=== PATIENT | female | born 1955 | race Caucasian/White ===

== ENCOUNTER 2018-07-15 15:38 | Inpatient (IN) | payer MEDICARE ==
[~2018-07-15] VITALS: Ht 157.5 cm; Wt 86.6 kg
[~2018-07-15 15:38] MED LIST: DIOVAN PO; GLIMEPIRIDE2 MG; HYDROCODON-ACE1 EA12; METFORMIN HCL500 MG; METOPROLOL SUCC50 MG
--- OUTSIDE RECORDS SUMMARY | 2018-07-15 15:42 | XMS REPORT | Clinical Summary ---
Author Author [facility] Address Unknown Phone Unavailable Care Team Providers Care Well Flow Operator Name Role Phone Mike Amezcua MD PCP Allergies Not on File Medications Not on file Active Problems Not on file Social History Date Tobacco Use Types Packs/Day Years Used Never Assessed Sex Assigned at Date Recorded Not on file Industry Job Start Date Occupation Not on file Not on file Not on file Travel End Travel History Travel Start No recent travel history available. Last Filed Vital Signs Not on file Plan of Treatment Health Maintenance Due Date Last Done Comments CERVICAL CANCER SCREENING 1975 COLON CANCER SCREENING 2004 SHINGRIX VACCINE (#1) 2004 ZOSTER VACCINE 2014 INFLUENZA VACCINE 04/04/2018 BREAST CANCER SCREENING 02/20/2019 02/20/2017 Results Not on fileafter 07/14/2017 Insurance Payer Benefit Subscriber ID Type Phone Address Plan / Group [facility] MEDICARE AARP xxxxxxxxx O MEDICARE COMPLETE MCR Advance Directives Patient has advance care planning documents on file. For more information, randell e contact: Nilay Neumann [address] [place], [place] [address] [place] [address]
--- OUTSIDE RECORDS SUMMARY | 2018-07-15 15:47 | XMS REPORT | Clinical Summary ---
Author Author [employer] [employer] [facility] [employer] [employer] Address Unknown Phone Unavailable Care Team Providers Care Supervisor [place] Name Role Phone Mike Amezcua MD PCP [...] ID Type Phone Address Plan / Group [facility] MEDICARE AARP xxxxxxxxx O MEDICARE COMPLETE MCR Advance Directives Patient has advance care planning documents on file. For more information, randell e contact: Nilay Neumann [address] [place], [place] [address] [place] [address]
[2018-07-15] MEDS ORDERED: SODIUM CHLORIDE 0.9% 1000ML 1,000 ML IV STA ×3 (15:59→17:12)
[2018-07-15] MEDS ORDERED: HYDRALAZINE HCL 20 MG/ML VIAL IV ONE (16:30)
[2018-07-15 16:46] LABS: BASOPHILS # (AUTO) 0.1 (0.0-0.1); BASOPHILS % 0.7 % (0.0-1.0); EOSINOPHILS # (AUTO) 0.1 (0.0-0.4); EOSINOPHILS % 0.8 % (0.0-6.0); HEMATOCRIT 35.2 % (34.2-44.1); HEMOGLOBIN 12.1 g/dL (12.0-16.0); LYMPHOCYTES # (AUTO) 1.8 (1.0-3.2); LYMPHOCYTES % 23.1 % (18.0-39.1); MEAN CORPUSCULAR HEMOGLOBIN 33.2 pg (28-32); MEAN CORPUSCULAR HGB CONC 34.4 g/dL (31-35); MEAN CORPUSCULAR VOLUME 96.7 fL (81-99); MONOCYTES # (AUTO) 0.6 (0.2-0.8); MONOCYTES % 8.2 % (4.4-11.3); NEUTROPHILS # (AUTO) 5.1 (2.1-6.9); NEUTROPHILS % 65.9 % (38.7-80.0); PLATELET COUNT 217 x10e3/uL (140-360); RED BLOOD COUNT 3.64 x10e6/uL (3.6-5.1); RED CELL DISTRIBUTION WIDTH 11.9 % (11.7-14.4)
[2018-07-15 16:52] LABS: INR 0.92; PARTIAL THROMBOPLASTIN TIME 29.7 seconds (23.8-35.5); PROTHROMBIN TIME 13.2 seconds (11.9-14.5)
[2018-07-15 17:00] LABS: ALBUMIN 3.1 g/dL (3.5-5.0); ALBUMIN/GLOBULIN RATIO 0.6 (0.8-2.0); ANION GAP 20.1 mmol/L (8-16); CALCIUM 10.8 mg/dL (8.4-10.2); CREATININE, SERUM 1.55 mg/dL (0.57-1.11); POTASSIUM 4.1 mmol/L (3.5-5.1)
[2018-07-15 17:06] LABS: CREATINE KINASE MB 0.6 ng/mL (0-5.0)
--- NOTE | 2018-07-15 17:22 | Diagnostic Imaging Report ---
FOOT RIGHT COMPLETE - 3 views HISTORY: Prednisone swelling COMPARISON: None available. FINDINGS: Status post right second toe amputation at the level of the proximal interphalangeal joint. No evidence of acute fracture or dislocation. No definite periosteal reaction or evidence of erosion. Partially imaged plate and screw fixation of tibia. Mild soft tissue swelling of the forefoot. IMPRESSION: No definite evidence of osteomyelitis. Consider obtaining MRI if there is high clinical concern for osteomyelitis. Signed by: Dr. Solis Wagner MD on 07/15/2018 5:19 PM
[2018-07-15] MEDS ORDERED: DIOVAN160 MG PO (17:34)
[2018-07-15] MEDS ORDERED: HYDROCHLOROTHIA25 MG PO (17:34)
[2018-07-15] MEDS ORDERED: AMLODIPINE BESY10 MG PO (17:34)
[2018-07-15] MEDS: PIPER-TAZ 3.375 GM 50 ML IV SCH (17:39)
[2018-07-15] MEDS ORDERED: INSULIN REGULAR, HUMAN 100 UNIT/1 ML 3ML VIAL SQ ONE (18:00)
[2018-07-15 18:02] LABS: CLARITY,URINE HAZY (CLEAR); COLOR,URINE YELLOW (YELLOW); KETONES,URINE NEGATIVE (NEGATIVE); LEUKOCYTE ESTERASE ,URINE TRACE (NEGATIVE); NITRITE,URINE POSITIVE (NEGATIVE); PROTEIN,URINE DIPSTICK 1+ (NEGATIVE); URINE UROBILINOGEN 0.2 mg/dL (0.2 - 1)
[2018-07-15 18:03] LABS: BILIRUBIN,URINE NEGATIVE (NEGATIVE)
[2018-07-15 18:10] LABS: BACTERIA,URINE MANY /HPF; EPITHELIAL CELLS,URINE RARE /LPF; RBC,URINE 0-5 /HPF (0-5)
[2018-07-15] MEDS ORDERED: ONDANSETRON HCL INJ 2 MG/ML VIAL IV PRN (19:00)
[2018-07-15] MEDS ORDERED: MORPHINE SULFATE INJ 4 MG/ML INJ IV PRN (19:00)
[2018-07-15] MEDS ORDERED: DEXTROSE 50% SYRINGE 50 ML IV PRN (19:00)
[2018-07-15] MEDS ORDERED: INSULIN LISPRO 100 UNIT/1 ML 3ML VIAL SQ ONE (19:15)
--- OUTSIDE RECORDS SUMMARY | 2018-07-15 19:17 | XMS REPORT ---
Author Author [facility] Address Unknown Phone Unavailable Care Team Providers Care Gut Snatcher Name Role Phone Luna JACKSON Unavailable Unavailable Problems This patient has no known problems. Allergies, Adverse Reactions, Alerts This patient has no known allergies or adverse reactions. Medications This patient has no known medications. Results Test Description Test Time Test Comments Text Results Atomic Results Result Comments FOOT RIGHT COMPLETE 2018-07-15 17:16:00 [place] [address] Patient Name: AURY RENTERIA MR #: [id number] : 1955 Age/Sex: 62/F Req #: [id number] Adm Physician: Ordered by: DERREK BOND AGRICULTURAL SALES REPRESENTATIVE Report #: [id number] Location: ER Room/Bed: Procedure: [id number] DX/FOOT RIGHT COMPLETE Exam Date: 07/15/18 Exam Time: 1625 REPORT STATUS: Signed FOOT RIGHT COMPLETE - 3 views HISTORY: Prednisone swelling COMPARISON: None available. FINDINGS: Status post right second toe amputation at the level of the proximal interphalangeal joint. No evidence of acute fracture or dislocation. No definite periosteal reaction or evidence of erosion. Partially imaged plate and screw fixation of tibia. Mild soft tissue swelling of the forefoot. IMPRESSION: No definite evidence of osteomyelitis. Consider obtaining MRI if there is high clinical concern for osteomyelitis. Signed by: Dr. Solis Conner MD on 07/15/2018 5:19 PM Dictated By: SOLIS CONNER MD 18 Transcribed By: SHERRIE on 07/15/181718 COPY TO: DERREK BOND NP
--- OUTSIDE RECORDS SUMMARY | 2018-07-15 19:17 | XMS REPORT | Clinical Summary ---
Author Author [facility] Address Unknown Phone Unavailable Care Team Providers Care Railway Engineer Name Role Phone Mike Amezcua MD PCP [...] ID Type Phone Address Plan / Group [facility] MEDICARE AARP xxxxxxxxx O MEDICARE COMPLETE MCR Advance Directives Patient has advance care planning documents on file. For more information, randell e contact: Nilay Neumann [address] [place], [place] [address] [place] [address]
[2018-07-15] MEDS ORDERED: CEFEPIME HCL 1 GM VIAL ONE (19:45)
[2018-07-15] MEDS ORDERED: SODIUM CHLORIDE 0.9% 1000ML 1,000 ML ONE (19:46)
[2018-07-15] MEDS ORDERED: SODIUM CHLORIDE 0.9% 100 ML ONE (19:46)
[2018-07-15] MEDS: SODIUM CHLORIDE 0.9% 1000ML 1,000 ML IV SCH (20:18)
[2018-07-15] MEDS: VANCOMYCIN 1GM/NS 250 ML 250 ML IV SCH (21:54)
[2018-07-15] MEDS: CEFEPIME HCL 1 GM VIAL IV SCH (21:55)
[2018-07-15] MEDS: INSULIN LISPRO 100 UNIT/1 ML 3ML VIAL SQ SCH (22:00)
--- NOTE | 2018-07-15 23:12 | Diagnostic Imaging Report ---
EXAMINATION: CHEST 2 VIEWS INDICATION: Diabetes and hypertension. COMPARISON: None FINDINGS: PA and lateral views TUBES and LINES: None. LUNGS: Lungs are well inflated. Calcified granuloma or bone island projecting over the right lateral lung base. There is no evidence of pneumonia or pulmonary edema. PLEURA: No pleural effusion or pneumothorax. HEART AND MEDIASTINUM: The cardiomediastinal silhouette is unremarkable. BONES AND SOFT TISSUES: No acute osseous lesion. Soft tissues are unremarkable. UPPER ABDOMEN: No free air under the diaphragm. IMPRESSION: No acute thoracic abnormality. Signed by: DR. Juwan Puga MD on 07/15/2018 11:08 PM
[2018-07-16] MEDS: PIPER-TAZ 3.375 GM 50 ML IV SCH ×4 (02:15→17:35)
[2018-07-16] MEDS ORDERED: SODIUM CHLORIDE 0.9% 50ML 50 ML ONE (03:14)
[2018-07-16] MEDS: CEFEPIME HCL 1 GM VIAL IV SCH ×3 (03:15→22:28)
[2018-07-16] MEDS: SODIUM CHLORIDE 0.9% 1000ML 1,000 ML IV SCH ×3 (03:31→17:51)
[2018-07-16 05:16] LABS: BASOPHILS % 0.6 % (0.0-1.0); EOSINOPHILS # (AUTO) 0.1 (0.0-0.4); EOSINOPHILS % 2.2 % (0.0-6.0); HEMATOCRIT 27.2 % (34.2-44.1); HEMOGLOBIN 9.3 g/dL (12.0-16.0); LYMPHOCYTES # (AUTO) 1.8 (1.0-3.2); MEAN CORPUSCULAR HEMOGLOBIN 33.7 pg (28-32); MEAN CORPUSCULAR HGB CONC 34.2 g/dL (31-35); MEAN CORPUSCULAR VOLUME 98.6 fL (81-99); MONOCYTES # (AUTO) 0.7 (0.2-0.8); MONOCYTES % 10.8 % (4.4-11.3); NEUTROPHILS # (AUTO) 3.5 (2.1-6.9); NEUTROPHILS % 55.8 % (38.7-80.0); PLATELET COUNT 183 x10e3/uL (140-360); RED BLOOD COUNT 2.76 x10e6/uL (3.6-5.1); RED CELL DISTRIBUTION WIDTH 12.2 % (11.7-14.4)
[2018-07-16 05:44] LABS: ANION GAP 13.9 mmol/L (8-16); CALCIUM 8.9 mg/dL (8.4-10.2); CREATININE, SERUM 1.15 mg/dL (0.57-1.11); POTASSIUM 3.9 mmol/L (3.5-5.1)
[2018-07-16] MEDS ORDERED: CEFEPIME HCL 1 GM VIAL IV SCH (06:00)
--- NOTE | 2018-07-16 08:38 | Consultation ---
DATE OF CONSULTATION: July 16, 2018 REASON FOR CONSULTATION: Right foot infection. HISTORY OF PRESENT ILLNESS: This is a 62-year-old female with a past medical history of type 2 diabetes, peripheral neuropathy, hypertension, heart disease, obesity, anemia of chronic disease, history of osteomyelitis, who presented to the emergency room yesterday for a worsening infection to her right foot. Per the patient, she relates over the weekend approximately 3 days ago she relates to having nausea, vomiting, fever, and chills, and noticed her right foot was getting red and swollen. She denies any acute history of trauma. She relates that she checks her blood glucose once a week, and relates that they are typically well controlled. She has a history of a partial 2nd digit amputation to the right foot. Currently, denies nausea, vomiting, fever, chills, chest pain, or shortness of breath. PAST MEDICAL HISTORY: Type 2 diabetes, peripheral neuropathy, hypertension, anemia of chronic disease, stage 1 chronic kidney disease, obesity. MEDICATIONS: Per the chart. ALLERGIES: ASPIRIN AND LISINOPRIL. REVIEW OF SYSTEMS: The patient currently denies nausea, vomiting, fever, chills, chest pain, or shortness of breath. SURGICAL HISTORY: Right 2nd digit amputation, I and D of hip with history of osteomyelitis, hysterectomy. SOCIAL HISTORY: The patient lives by herself. Denies smoking. Denies any illicit drug usage. PHYSICAL EXAMINATION GENERAL: Alert and oriented times 3 in no apparent distress. VITAL SIGNS: Today, temperature is 98.8, heart rate 89, respiratory rate 18, blood pressure 140/70, pulse ox 96% on room air. LOWER EXTREMITY PHYSICAL EXAMINATION VASCULAR: Dorsalis pedis pulse is palpable, and 2/4 posterior tibial pulses faintly palpable at 1/4. Capillary refill time is approximately 3-4 seconds to the right foot. Bright erythema is noted to the patient's right foot extending from the right 3rd digit to the level of the mid-forefoot. Edema and warmth is noted as well. NEUROLOGICAL: Sensation is absent to light touch bilateral. MUSCULOSKELETAL: Large bony prominence of the 1st metatarsophalangeal joint with the hallux deviated laterally. Partially amputated right 2nd digit. DERMATOLOGICAL: A deep ulceration is noted to the distal tip of the patient's right 3rd digit, as well as the entire dorsum of the right 3rd digit with 100% fibrotic tissue present. Greater than 2 cm of periwound erythema, edema and warmth are present. The digit is approximately 1.5 times the adjacent digit. LABS: White blood cell count is 6.3, hemoglobin 9.3, hematocrit 27.2, and platelet count 183,000. Sed rate is 125. Sodium 139, potassium 3.9, chloride 106, CO2 23, BUN 20, creatinine 1.15, glucose 213. Glucose upon admission was 362. Hemoglobin A1c is pending. IMAGING: Two views were taken of the patient's right foot, which reveals no definite evidence of acute osteomyelitis. However, MRI is recommended. ASSESSMENT 1. Right diabetic foot infection with periwound cellulitis greater than 2 cm with concern for osteomyelitis. 2. Uncontrolled type 2 diabetes with peripheral neuropathy. 3. Previous history of amputation of the right 2nd digit. PLAN: The patient was seen and evaluated. Discussed condition, x-rays and treatment options with the patient in detail. The dressing was changed, and the wound was examined today. Will recommend MRI to determine presence and extent of osteomyelitis. Discussed with the patient if osteomyelitis is present, will recommend at least a right 3rd digit amputation versus a transmetatarsal amputation depending on the results of the MRI. Will also order arterial Dopplers to evaluate circulation to determine if intervention will be needed to optimize the healing process. Will order daily dressing changes with Betadine wet-to-dry. The podiatry service will continue to monitor as an inpatient. Job#: [id number] [place]
[2018-07-16] MEDS: INSULIN LISPRO 100 UNIT/1 ML 3ML VIAL SQ SCH ×6 (08:50→21:10)
[2018-07-16] MEDS ORDERED: VANCOMYCIN 1GM/NS 250 ML 250 ML IV SCH (09:00)
[2018-07-16] MEDS: VANCOMYCIN 1GM/NS 250 ML 250 ML IV SCH ×2 (09:52→17:35)
--- NOTE | 2018-07-16 11:26 | History and Physical ---
CHIEF COMPLAINT: "I have a right foot infection." HISTORY OF PRESENT ILLNESS: This is a 62-year-old female white woman who presents to [facility] emergency room with complaints of right 3rd toe redness for 2 days. Patient states for approximately 1 week prior to admission she had been experiencing subjective fever and chills, denied any nausea or vomiting. Patient states that 3 days prior to admission she noticed that her 3rd right toe became very red and swollen. She states on the day of admission her right foot became very red and swollen. Patient has minimal pain since she has severe diabetic peripheral neuropathy. In the emergency room patient was found to have a white blood cell count of 7600 with 65% segmented neutrophils. Patient's sedimentation rate was elevated at 125. Patient's BUN and creatinine in the emergency room were 21 and 1.55 respectively. Also in the emergency room patient's serum glucose level was 673 mg/dl. Patient's anion gap was 20, but the serum bicarbonate was 25. Today's labs reveal a BUN and creatinine of 20 and 1.15 respectively with serum bicarbonate of 23 and an anion gap of 13.9. Patient underwent an x-ray of the right foot in the emergency room that revealed no clear evidence of osteomyelitis, but it did reveal mild soft-tissue swelling of the right forefoot. The patient underwent chest x-ray in the emergency room which was unremarkable. In the emergency room patient was found to have hazy yellow urine with 1+ protein, 3+ glucose, positive nitrites, trace blood, trace leukocyte esterase, and 11-20 white blood cells per high-power field with many bacteria. Patient was admitted for further evaluation and treatment. REVIEW OF SYSTEMS GENERAL: Patient thinks that she may have gained 20 pounds over the last year and a half, but she is unable to quantify exactly. The patient states that she has been experiencing subjective fever and chills for 1 week prior to admission as previously stated. HEENT: Patient states her vision has worsened secondary to diabetic retinopathy. Denies any headaches. CARDIOVASCULAR/RESPIRATORY: No chest pain, no shortness of breath, no cough. GI: No nausea, vomiting. : Urinary frequency but denies any urinary tract infection-type symptoms but was found to have a urinary tract infection in the emergency room. NEUROMUSCULAR: Complains of the right 3rd toe redness and swelling over the past few days prior to admission. Patient states she has numbness in the plantar aspect of both feet. ALLERGIES: ASPIRIN. PAST MEDICAL HISTORY 1. Type 2 diabetes mellitus with severe diabetic peripheral neuropathy. 2. Stage 3 chronic renal disease. 3. Hypertensive heart disease. 4. Hypertriglyceridemia. 5. Hyperlipidemia. 6. Severe statin intolerance. 7. Anemia secondary to chronic disease. 8. Diabetic retinopathy. SURGICAL HISTORY 1. Second right toe amputation in 2014. 2. Right proximal tibia intramedullary nail placement. 3. Partial hysterectomy. 4. Right wrist surgery to repair a traumatic fracture. 5. Lower abdominal incision and drainage of Methicillin-resistant Staphylococcus aureus infection in September of 2009. SOCIAL HISTORY: This woman is single and lives alone in an apartment. She is currently unemployed but receiving disability benefits. The patient denies any tobacco or alcohol use. FAMILY HISTORY: Father with hypertension and diabetes mellitus. HOME MEDICATIONS 1. Metformin 500 mg b.i.d. 2. [place]-3 fish oil 2000 mg b.i.d. 3. Glimepiride 4 mg b.i.d. 4. Hydrochlorothiazide 25 mg b.i.d. 5. Valsartan 160 mg b.i.d. 6. Amlodipine 10 mg daily. 7. Vitamin D3, 1000 units daily. PHYSICAL EXAMINATION GENERAL: She is awake, alert and fully oriented. She is pleasant and cooperative with exam. VITAL SIGNS: Blood pressure is 148/90, pulse 106, respiratory rate is 18, oxygen saturation 98% right atrial. temperature is 99.0. Height is 5 feet 2 inches. Weight is 165 pounds. Calculated body mass index is 30. INTEGUMENT: Skin is warm and dry. No pallor, jaundice, diaphoresis. HEENT: Anicteric sclerae with dry mucous membranes. NECK: Supple. CARDIOVASCULAR: Distant heart sounds. Tachycardic rate with regular rhythm. Patient has an S3 and S4 gallop. LUNGS: No rales, no rhonchi, no wheezes. ABDOMEN: Obese yet benign. EXTREMITIES: The right 3rd toe is swollen and erythematous with purulent drainage. The right forefoot is very swollen, red, tender and warm to touch. There is erythema extending superiorly into the distal aspect of the right lower leg. NEUROLOGIC: No gross deficits, but she has no pinprick sensation in the plantar aspect of both feet. DIAGNOSES 1. Right diabetic foot ulcer (3rd toe) with surrounding cellulitis. 2. Right foot osteomyelitis, likely. 3. Uncontrolled type 2 diabetes mellitus with severe diabetic peripheral neuropathy. 4. Diabetic retinopathy. 5. Hypertensive heart disease. 6. Kzmws-jc-zibpcuz renal failure. 7. Urinary tract infection. PLAN 1. Start intravenous antibiotics. 2. Consult Podiatry. 3. Agree with MRI of the right foot as recommended by Podiatry. 4. Agree with arterial Dopplers of the right lower leg. 5. Inform the patient that she likely would benefit from a transmetatarsal amputation but could likely undergo a right below-knee amputation in the near future. 6. Aggressive glucose control. 7. Will check lipid profile. 8. Will hold metformin and diuretics, namely hydrochlorothiazide, because of the patient's [id number] renal failure. 9. Will initiate scheduled insulin therapy. 10. Blood pressure control. 11. Follow urine cultures. I spent 1 hour 10 minutes in the care of this patient. Job#: [id number] EV [email or web address]
[2018-07-16 11:39] LABS: CHOL/HDL RATIO 8.1 (3.0-3.6)
[2018-07-16 11:49] LABS: THYROID STIMULATING HORMONE 2.669 uIU/mL (0.350-4.940)
--- NOTE | 2018-07-16 13:36 | Diagnostic Imaging Report ---
TECHNIQUE: Magnetic resonance imaging of the RIGHT foot was performed WITHOUT injected contrast. HISTORY: Necrotic right third toe, evaluate for osteomyelitis COMPARISON: None available. DISCUSSION: Prior amputation across the proximal phalanx second toe. Fragmented middle phalanx third toe. Bone marrow edema and mild T1 signal change involving the middle and distal phalanges of the third toe and distal phalanx of the fourth toe. Degenerative arthrosis of the first MTP joint and scattered midfoot Mild generalized soft tissue edema of the forefoot. IMPRESSION: Ischemic change versus osteomyelitis of the middle and distal phalanx third toe and distal phalanx fourth toe Signed by: Dr. Delroy Sanchez M.D. on 07/16/2018 1:33 PM
[2018-07-16 15:00] VITALS: BP 173/77
[2018-07-16 16:30] VITALS: BP 173/77
[2018-07-16] MEDS: INSULIN DETEMIR 100 UNIT/ML PEN SQ SCH (17:36)
[2018-07-16 20:33] VITALS: BP 186/77
[2018-07-17] VITALS (7 sets, daily range): BP systolic 152–192; BP diastolic 69–93
[2018-07-17] MEDS: PIPER-TAZ 3.375 GM 50 ML IV SCH ×5 (00:27→23:26)
[2018-07-17] MEDS: SODIUM CHLORIDE 0.9% 1000ML 1,000 ML IV SCH ×3 (02:49→18:49)
[2018-07-17 04:56] LABS: BASOPHILS % 0.5 % (0.0-1.0); EOSINOPHILS # (AUTO) 0.2 (0.0-0.4); EOSINOPHILS % 2.4 % (0.0-6.0); HEMATOCRIT 27.2 % (34.2-44.1); LYMPHOCYTES # (AUTO) 2.4 (1.0-3.2); LYMPHOCYTES % 38.2 % (18.0-39.1); MEAN CORPUSCULAR HEMOGLOBIN 33.3 pg (28-32); MEAN CORPUSCULAR HGB CONC 33.1 g/dL (31-35); MEAN CORPUSCULAR VOLUME 100.7 fL (81-99); MONOCYTES # (AUTO) 0.7 (0.2-0.8); MONOCYTES % 10.7 % (4.4-11.3); NEUTROPHILS # (AUTO) 2.9 (2.1-6.9); NEUTROPHILS % 46.1 % (38.7-80.0); PLATELET COUNT 166 x10e3/uL (140-360); RED CELL DISTRIBUTION WIDTH 12.3 % (11.7-14.4)
[2018-07-17 05:18] LABS: ALBUMIN 2.2 g/dL (3.5-5.0); ALBUMIN/GLOBULIN RATIO 0.7 (0.8-2.0); ANION GAP 13.7 mmol/L (8-16); CALCIUM 7.7 mg/dL (8.4-10.2); CREATININE, SERUM 1.19 mg/dL (0.57-1.11); POTASSIUM 3.7 mmol/L (3.5-5.1)
[2018-07-17] MEDS: CEFEPIME HCL 1 GM VIAL IV SCH ×3 (05:59→21:53)
[2018-07-17] MEDS ORDERED: BACITRACIN 50,000 UNIT VIAL ONE (06:46)
[2018-07-17] MEDS: INSULIN LISPRO 100 UNIT/1 ML 3ML VIAL SQ SCH ×7 (07:24→21:42)
[2018-07-17] MEDS ORDERED: BUPIVACAINE HCL 0.5% INJ 30 ML VIAL INJ ONE (07:44)
--- NOTE | 2018-07-17 09:23 | Operative Report ---
DATE OF PROCEDURE: July 17, 2018 PREOPERATIVE DIAGNOSIS: Right foot osteomyelitis, 3rd and 4th digits. POSTOPERATIVE DIAGNOSIS: Right foot osteomyelitis, 3rd and 4th digits. PLANNED PROCEDURE: Right transmetatarsal amputation. ANESTHESIA: General with a postoperative block consisting of 15 mL of 0.5% Marcaine plain. HEMOSTASIS: Pneumatic thigh tourniquet set at 350 mmHg for a total time of approximately 25 minutes. MATERIALS: 3-0 nylon, TLS drain. ESTIMATED BLOOD LOSS: Less than 10 mL. PATHOLOGY: Anaerobic and aerobic cultures. Right forefoot sent for gross specimen. PROCEDURE IN DETAIL: The patient was seen in the preoperative waiting room. The correct procedure and site were identified. The patient was brought to the operating room and placed on the operating table in the supine position. General anesthesia was initiated at this time. A well-padded pneumatic tourniquet was placed about the patient's right thigh. The right foot, ankle and leg were then scrubbed, prepped and draped in the usual aseptic manner. The right foot, ankle and leg were exsanguinated with gravity, and the pneumatic thigh tourniquet was inflated to 350 mmHg for a total time of approximately 30 minutes. Attention was directed to the distal aspect of the patient's right foot where a large necrotic ulceration was noted to the entirety of the right 3rd digit with purulent drainage with malodor. A deep ulceration was noted to the medial aspect of the right 4th digit. The patient previously had partial amputation to the right 2nd digit. Decision was made to proceed with a transmetatarsal amputation. At this time, 2 large converging semielliptical incisions approximately 10 cm each were made in a fishmouth-type fashion. Incision was carried down directly to the level of bone. At this time, the metatarsophalangeal joints were easily identified, and the distal digits were disarticulated and passed off to the back table. At this time, wound cultures were taken. Utilizing a sagittal saw, 5 metatarsal osteotomies were performed dorsal distal to plantar proximal with the 1st metatarsal and 5th metatarsal osteotomies angled slightly medial to lateral for the 1st metatarsal and slightly lateral to medial for the 5th metatarsal to ensure for proper anatomical parabola. Next, the wound was debrided of all necrotic and devitalized tissue. The wound was flushed with copious amounts of sterile saline mixed with bacitracin utilizing a pulse lavage system. Next, the wound edges were all prepped for closure by removing all dog ears, and hyperkeratotic tissue was debrided plantarly. The incision site was reapproximated utilizing simple interrupted sutures with 3-0 nylon prior to wound closure. Per milk of lime slaker protocol, a TLS drain was placed. The incision site was then dressed with Adaptic and Betadine-soaked 4 x 4's, Kerlix and Gus wrap. Patient tolerated the procedure and anesthesia well. Patient was transferred to the postoperative recovery unit with vital signs stable and vascular status intact. Patient was monitored there for a short period of time before being readmitted to the floor for postoperative monitoring, pain control and IV antibiotics. The podiatry service will continue to monitor as an inpatient. This patient should be 100% nonweightbearing to the right lower extremity. Job#: [id number]
[2018-07-17] MEDS: AMLODIPINE BESYLATE 10 MG TAB PO SCH (09:38)
[2018-07-17] MEDS: INSULIN DETEMIR 100 UNIT/ML PEN SQ SCH ×2 (09:53→17:47)
[2018-07-17] MEDS: VANCOMYCIN 1GM/NS 250 ML 250 ML IV SCH (10:11)
[2018-07-17] MEDS ORDERED: ASPIRIN 325 MG TAB PO SCH (10:15)
[2018-07-17] MEDS ORDERED: ENOXAPARIN SOD INJ 40 MG/0.4 ML SYR SC NR (10:30)
--- NOTE | 2018-07-17 11:21 | Diagnostic Imaging Report ---
PROCEDURE: A single AP view of the chest. COMPARISON: Patients [facility], , CHEST 2 VIEWS, 07/15/2018, 22:41. INDICATIONS: PICC LINE PLACEMENT FINDINGS: See impression. IMPRESSION: 1. interval placement of right-sided PICC line, with distal tip projecting at the cavoatrial junction. 2. Lungs are well inflated and grossly clear. No consolidation or effusion. Stable calcified granuloma or bone island projecting in the lateral right lower lung. 3. Cardiac mediastinal silhouette is unremarkable. Roland Hoover M.D. Dictated by: Roland Hoover M.D. on 07/17/2018 at 11:30 Electronically approved by: Roland Hoover M.D. on 07/17/2018 at 11:30
--- NOTE | 2018-07-17 16:26 | Consultation ---
DATE OF CONSULTATION: July 17, 2018 CARDIOLOGY CONSULTATION REASON FOR CONSULTATION: Peripheral arterial disease. CHIEF COMPLAINT: Right lower extremity pain. HISTORY OF PRESENT ILLNESS: Patient is a 62-year-old female with known peripheral arterial disease as well as diabetic foot ulcerations, who is known to our service. She is status post right lower extremity TMA performed by Podiatry this morning without complications. We are consulted for management of cardiovascular issues. PAST MEDICAL HISTORY: 1. Type 2 diabetes with severe diabetic neuropathy. 2. Stage 3 CKD. 3. Hypertensive heart disease. 4. Hypertriglyceridemia. 5. Hyperlipidemia. 6. Severe statin tolerance. 7. Anemia secondary to chronic disease. 8. Diabetic retinopathy. PAST SURGICAL HISTORY: 1. Right toe amputation in 2014. 2. Right tibial surgery. 3. Partial hysterectomy. 4. Right wrist surgery to repair a traumatic fracture. 5. Incision and drainage of MRSA infection in 2009 in the right lower abdomen. FAMILY HISTORY: No family history of early CAD or sudden cardiac . SOCIAL HISTORY: Patient does not smoke, drink or abuse alcohol. HOME MEDICATIONS: Reviewed. PHYSICAL EXAMINATION: VITALS: Temperature 97.6, pulse 95, respiratory rate 18, blood pressure 162/87, satting 95% on room air. GENERAL: A white female in no acute distress. Well developed, well nourished. CARDIOVASCULAR: Regular rate and rhythm. No murmurs, rubs, or gallops. Palpable carotid pulses. Palpable radial pulses. EXTREMITIES: Right lower extremity with dressing in place. RESPIRATORY: Lungs are clear to auscultation bilaterally. No respiratory distress. ABDOMEN: Obese, soft, nontender. No masses. NEURO AND PSYCH: Alert and oriented to person, place, and time. Normal affect. INPATIENT MEDICATIONS: Reviewed. LABORATORY DATA: Reviewed. ASSESSMENT AND PLAN: 1. Right diabetic foot ulcer with status post right metatarsal transmetatarsal amputation. 2. Peripheral arterial disease with a lesion in the right popliteal artery by arterial Doppler. 3. Urinary tract infection. 4. Chronic kidney disease. 5. Uncontrolled type 2 diabetes with nephropathy, retinopathy and neuropathy. 6. Hypertension. 7. Hypertensive heart disease. PLAN: Wound management and antibiotics per Podiatry. Patient is planned to be discharged to [facility] for rehab post amputation given her poor renal function as well as ongoing UTI. Will wait to perform her peripheral angiography and possible intervention at a later date depending on wound healing of her right transmetatarsal amputation. This procedure can be performed as an outpatient. Thank you for this consult. Will continue to follow. Job#: [id number] EV
[2018-07-17] MEDS ORDERED: ONDANSETRON HCL INJ 2 MG/ML VIAL ONE (18:02)
[2018-07-17] MEDS ORDERED: SEVOFLURANE INHAL SOLN 250 ML PEN BTL ONE (18:02)
[2018-07-17] MEDS ORDERED: DEXAMETHASONE SOD PHOS INJ 4 MG/ML VIAL ONE (18:02)
[2018-07-17] MEDS ORDERED: LIDOCAINE HCL 2% LOCAL INJ 5 ML SDV VIAL INJ ONE (18:02)
[2018-07-17] MEDS ORDERED: PROPOFOL IV EMULSION 10 MG/ML 20 ML VIAL ONE (18:02)
[2018-07-17] MEDS ORDERED: MIDAZOLAM HCL 2 MG/2 ML VIAL ONE (18:23)
[2018-07-17] MEDS ORDERED: FENTANYL CITRATE/PF 100MCG/2 ML INJ ONE (18:23)
[2018-07-17] MEDS: PRAVASTATIN 20 MG TAB PO SCH (20:51)
[2018-07-18 00:36] VITALS: BP 182/80
[2018-07-18] MEDS: SODIUM CHLORIDE 0.9% 1000ML 1,000 ML IV SCH (01:41)
[2018-07-18 04:53] LABS: BASOPHILS % 0.2 % (0.0-1.0); EOSINOPHILS % 0.4 % (0.0-6.0); HEMATOCRIT 27.4 % (34.2-44.1); HEMOGLOBIN 9.3 g/dL (12.0-16.0); LYMPHOCYTES # (AUTO) 2.1 (1.0-3.2); LYMPHOCYTES % 23.8 % (18.0-39.1); MEAN CORPUSCULAR HEMOGLOBIN 33.2 pg (28-32); MEAN CORPUSCULAR HGB CONC 33.9 g/dL (31-35); MEAN CORPUSCULAR VOLUME 97.9 fL (81-99); MONOCYTES # (AUTO) 0.6 (0.2-0.8); MONOCYTES % 6.9 % (4.4-11.3); NEUTROPHILS % 67.1 % (38.7-80.0); PLATELET COUNT 176 x10e3/uL (140-360); RED CELL DISTRIBUTION WIDTH 11.9 % (11.7-14.4)
[2018-07-18 05:12] LABS: ALBUMIN 2.3 g/dL (3.5-5.0); ALBUMIN/GLOBULIN RATIO 0.7 (0.8-2.0); ANION GAP 12.6 mmol/L (8-16); CALCIUM 7.8 mg/dL (8.4-10.2); CREATININE, SERUM 1.19 mg/dL (0.57-1.11); POTASSIUM 3.6 mmol/L (3.5-5.1)
[2018-07-18] MEDS: CEFEPIME HCL 1 GM VIAL IV SCH ×3 (05:50→21:17)
[2018-07-18] MEDS: PIPER-TAZ 3.375 GM 50 ML IV SCH (05:50)
[2018-07-18 06:01] VITALS: BP 188/62
[2018-07-18] MEDS: INSULIN LISPRO 100 UNIT/1 ML 3ML VIAL SQ SCH ×6 (07:40→22:09)
[2018-07-18 08:00] VITALS: BP_SYST 139; BP_SYST 158; BP_DIAS 72; BP_DIAS 75
[2018-07-18] MEDS ORDERED: ASPIRIN 81 MG ENTERIC COATED PO SCH (09:00)
--- NOTE | 2018-07-18 09:18 | Progress Note ---
DATE: July 18, 2018 SUBJECTIVE: Ms. Wynne is seen at bedside this morning, resting comfortably. Denies nausea, vomiting, fever, chills, chest pain, or shortness of breath. No acute issues overnight. Denies any pain to the right lower extremity. OBJECTIVE: VITAL SIGNS: Today, temperature 97.3, heart rate 96, respiratory rate 18, blood pressure 188/62, pulse ox is 99% on room air. PROBLEM-FOCUSED LOWER EXTREMITY PHYSICAL EXAMINATION: Dressing is in place and intact. No evidence of any strikethrough noted to the bandage. Minimal bleeding is noted through the TLS drain. Dressing was not changed today. LABS: White blood cell count is 8.9, hemoglobin 9.3, hematocrit 27.4, platelet count is 176,000. MICROBIOLOGY: Gram-negative bacilli and Staph aureus are noted in the wound culture. IMAGING: Arterial Dopplers revealed elevated velocities in the right popliteal artery suggestive of 50% to 75% local stenosis. The left popliteal artery is suggestive of less than 50% focal stenosis. Right popliteal artery has monophasic waveforms. Right popliteal artery distal has biphasic waveforms. Right posterior tibial, anterior tibial, and right dorsalis pedis have monophasic waveforms. ASSESSMENT: 1. Right foot osteomyelitis, postoperative day 1 right transmetatarsal amputation. 2. Type 2 diabetes with peripheral neuropathy. 3. Peripheral vascular disease. PLAN: Patient was seen and evaluated. Discussed condition and treatment options with patient in detail. At this time, the TLS drain was pulled and discarded. A full dressing change was not performed on this visit due to patient only being postoperative day 1. An LTAC evaluation is currently being performed for IV antibiotics, wound care, and postoperative monitoring. Patient was seen and had vascular evaluation per the chart. Will monitor closely with wound healing, and if necessary will perform angiogram or angioplasty as an outpatient as needed. The podiatry service will continue to monitor as an inpatient. Job#: [id number]
[2018-07-18] MEDS: VANCOMYCIN 1GM/NS 250 ML 250 ML IV SCH (09:36)
[2018-07-18] MEDS: AMLODIPINE BESYLATE 10 MG TAB PO SCH (09:37)
[2018-07-18] MEDS: ENOXAPARIN SOD INJ 40 MG/0.4 ML SYR SC SCH (09:37)
[2018-07-18 09:52] VITALS: BP 139/75
[2018-07-18] MEDS ORDERED: SODIUM CHLORIDE 0.9% 50ML 50 ML ONE (11:24)
[2018-07-18] MEDS: CLOPIDOGREL BISULFATE 75 MG TAB PO SCH (11:41)
[2018-07-18] MEDS: MEROPENEM 1 GM VIAL IV SCH ×2 (11:51→21:17)
--- NOTE | 2018-07-18 13:43 | Progress Note ---
DATE: CARDIOLOGY PROGRESS NOTE SUBJECTIVE: The patient overall is feeling well. She denies any lower extremity pain. She denies any chest pain or shortness of breath. OBJECTIVE VITALS: Temperature 97.3, heart rate 96, respiratory rate 18, blood pressure 139/75, oxygen saturation 99% on room air. GENERAL: She is a well-appearing, well-built woman lying comfortably in bed in no apparent distress. HEAD: Normocephalic and atraumatic. NECK: No jugular venous distention. CARDIOVASCULAR: Regular rate and rhythm. No murmurs. LUNGS: Clear to auscultation. ABDOMEN: Soft, nontender and nondistended. NEUROLOGIC: No focal deficits noted. EXTREMITIES: There is a right foot bandage in place. ASSESSMENT 1. Right diabetic foot ulcer, status post right transmetatarsal amputation. 2. Peripheral arterial disease. 3. Urinary tract infection. 4. Chronic kidney disease. 5. Diabetes mellitus. 6. Hypertension. RECOMMENDATIONS: Patient is healing well from her transmetatarsal amputation. Continue wound management and antibiotics per podiatry. Dr. Iverson has assessed the patient, and plan is for outpatient peripheral angiogram pending her clinical course. The patient is stable from a cardiovascular standpoint for discharge to [facility]. Otherwise, continue all her current cardiovascular medications. Job#: [id number]
[2018-07-18] MEDS ORDERED: MEROPENEM 1GRAM 1 GM in SODIUM CHLORIDE 0.9% 100 ML 100 ML IV SCH (14:00)
[2018-07-18 16:00] VITALS: BP 172/104
[2018-07-18] MEDS: LOSARTAN POTASSIUM 100 MG TAB PO SCH (16:59)
[2018-07-18] MEDS ORDERED: INSULIN DETEMIR 100 UNIT/ML PEN SQ SCH (17:00)
[2018-07-18 20:00] VITALS: BP 172/79
[2018-07-18] MEDS: PRAVASTATIN 20 MG TAB PO SCH (20:58)
[2018-07-19] VITALS: BP 174/77
[2018-07-19 04:00] VITALS: BP 186/92
[2018-07-19] MEDS: MEROPENEM 1 GM VIAL IV SCH ×2 (04:15→12:16)
[2018-07-19] MEDS: CEFEPIME HCL 1 GM VIAL IV SCH (04:55)
[2018-07-19 05:29] LABS: BASOPHILS % 0.5 % (0.0-1.0); EOSINOPHILS # (AUTO) 0.1 (0.0-0.4); EOSINOPHILS % 1.9 % (0.0-6.0); LYMPHOCYTES # (AUTO) 1.9 (1.0-3.2); LYMPHOCYTES % 29.2 % (18.0-39.1); MEAN CORPUSCULAR HEMOGLOBIN 33.2 pg (28-32); MEAN CORPUSCULAR HGB CONC 33.3 g/dL (31-35); MEAN CORPUSCULAR VOLUME 99.6 fL (81-99); MONOCYTES # (AUTO) 0.6 (0.2-0.8); NEUTROPHILS # (AUTO) 3.7 (2.1-6.9); NEUTROPHILS % 57.5 % (38.7-80.0); PLATELET COUNT 168 x10e3/uL (140-360); RED BLOOD COUNT 2.71 x10e6/uL (3.6-5.1); RED CELL DISTRIBUTION WIDTH 12.6 % (11.7-14.4)
[2018-07-19 05:50] LABS: ALBUMIN 2.3 g/dL (3.5-5.0); ALBUMIN/GLOBULIN RATIO 0.7 (0.8-2.0); ANION GAP 13.4 mmol/L (8-16); CREATININE, SERUM 0.97 mg/dL (0.57-1.11); POTASSIUM 3.4 mmol/L (3.5-5.1)
[2018-07-19] MEDS: INSULIN LISPRO 100 UNIT/1 ML 3ML VIAL SQ SCH ×4 (07:45→11:46)
[2018-07-19 08:00] VITALS: BP 184/87
--- NOTE | 2018-07-19 08:36 | Progress Note ---
DATE: July 19, 2018 SUBJECTIVE: Ms. Wynne was seen at the bedside this morning, postoperative day 2 right transmetatarsal amputation. She is seen resting comfortably. Denies nausea, vomiting, fever, chills, chest pain, or shortness of breath. No acute issues overnight. Denies any pain to the right lower extremity. OBJECTIVE VITAL SIGNS: Today, temperature is 96.8, heart rate 93, respiratory rate 18, blood pressure 186/92, pulse ox is 99% on room air. LOWER EXTREMITY PHYSICAL EXAMINATION VASCULAR: Dorsalis pedis and posterior tibial pulses are faintly palpable. Capillary refill time to the distal stump site is approximately 3-4 seconds. Negative erythema. Minimal edema. Negative warmth. NEUROLOGICAL: Sensation is absent to light touch bilaterally. MUSCULOSKELETAL: Right transmetatarsal amputation. DERMATOLOGICAL: Incision site is noted to the right foot operative site. Sutures are in place and intact. No evidence of wound dehiscence or local acute signs of infection at this time. LABS: White blood cell count is 6.4, hemoglobin 9, hematocrit 27, and platelet count is 168,000. Wound culture with enterobacter species and MSSA. ASSESSMENT 1. Right foot osteomyelitis: Postoperative day 2 right transmetatarsal amputation. 2. Type 2 diabetes with peripheral neuropathy. 3. Peripheral vascular disease. PLAN: Patient was seen and evaluated. Discussed condition and treatment options with the patient detail. Today, the right foot dressing change was performed with Betadine wet-to-dry and dry sterile dressings. No local acute signs of infection are present at this time. An LTAC evaluation is currently pending. The patient is currently on vancomycin and cefepime, which is appropriate based on the sensitivities. Will continue that. Cardiology will consider angioplasty as an outpatient depending on wound healing at the stump site. The podiatry service will continue to monitor as an inpatient, but is stable for discharge to a nursing facility at this time. Job#: [id number] VIBHA
[2018-07-19] MEDS: LOSARTAN POTASSIUM 100 MG TAB PO SCH (08:44)
[2018-07-19] MEDS: VANCOMYCIN 1GM/NS 250 ML 250 ML IV SCH (08:44)
[2018-07-19] MEDS: CLOPIDOGREL BISULFATE 75 MG TAB PO SCH (08:44)
[2018-07-19] MEDS: AMLODIPINE BESYLATE 10 MG TAB PO SCH (08:44)
[2018-07-19] MEDS: ENOXAPARIN SOD INJ 40 MG/0.4 ML SYR SC SCH (08:45)
[2018-07-19] MEDS ORDERED: POTASSIUM CHLORIDE 10MEQ EA PO NR (09:45)
[2018-07-19] MEDS ORDERED: INSULIN DETEMIR 100 UNIT/ML PEN SQ SCH (09:45)
[2018-07-19 09:50] VITALS: BP 184/87
[2018-07-19 12:00] VITALS: BP 174/77
[2018-07-19] MEDS ORDERED: AMLODIPINE BESYLATE 5 MG TAB PO SCH (14:30)
[2018-07-19] MEDS ORDERED: PRAVASTATIN 20 MG TAB PO SCH (21:00)
--- NOTE | 2018-07-20 07:21 | Discharge Summary ---
ADMIT DIAGNOSES 1. Right diabetic foot ulcer (3rd toe) with surrounding cellulitis. 2. Right foot osteomyelitis, likely. 3. Uncontrolled type 2 diabetes mellitus with severe diabetic peripheral neuropathy. 4. Diabetic retinopathy. 5. Hypertensive heart disease. 6. Mwlxl-du-ofmgyhb renal failure. 7. Urinary tract infection. DISCHARGE DIAGNOSES 1. Right foot osteomyelitis. 2. Status post right transmetatarsal amputation. 3. Enterobacter aerogenes and Staphylococcus aureus infected right foot wound. 4. Escherichia coli urinary tract infection. 5. Acute renal failure, resolved. 6. Type 2 diabetes mellitus with severe diabetic peripheral neuropathy. 7. Peripheral arterial disease (right popliteal 70% occlusion). 8. Hypertensive heart disease. 9. Anemia secondary to chronic disease. 10. Obesity. Body mass index 34. 11. Diabetic retinopathy. 12. Dyslipidemia. 13. Moderate protein calorie malnutrition. HOSPITAL COURSE: This is a 62-year-old white woman who was initially admitted to [facility] with a diagnosis of right foot osteomyelitis particularly in the 3rd and 4th digits. During this hospitalization, the patient had an MRI of the right foot that confirmed findings consistent of osteomyelitis. The patient was seen by her private advisor, namely Dr. Caldera, who performed successful right transmetatarsal amputation. Aerobic and anaerobic cultures were taken during the hospitalization. The cultures from the forefoot revealed the presence of Enterobacter aerogenes and Staphylococcus aureus. This Staphylococcus aureus was found to be sensitive to vancomycin, and the strand of enterobacter species found to be sensitive to meropenem. Also, during this hospitalization, the patient's urine cultures were done that revealed E. coli bacterial species, greater than 100,000 colony-forming units per mL of urine. This strand of E. coli species was found to be sensitive to meropenem. The patient was also admitted with the diagnosis of uncontrolled type 2 diabetes mellitus. Thus, she was started on high dose insulin therapy. The patient's glucose levels did improve with the addition of long-acting Levemir twice a day and short-acting Humalog insulin 3 times a day with meals. The patient was found to have a hemoglobin A1c of 12% during this hospitalization. The patient was also found to have an LDL cholesterol of 151 mg/dL with a triglyceride level of 312 mg/dL. Although the patient states she has statin intolerance, she was started on Pravastatin 80 mg every night during this hospital stay. Also, during this hospitalization, the patient was found to have a TSH of 2.69. Moreover, she was found to have a C-reactive protein of 43.4 and a sedimentation rate of 125. Inflammatory markers only confirmed the patient's diagnosis of right foot osteomyelitis. The decision was made to transfer the patient to a long-term acute care facility, namely [facility] where she could receive multiple intravenous antibiotic therapy for her right foot cellulitis and E. coli urinary tract infection. Also, the patient could receive daily wound care, as well as daily physician visits to help manage her multiple medical comorbidities. The patient's condition on discharge was stable. DISCHARGE MEDICATIONS 1. Pravastatin 80 mg at bedtime. 2. Vancomycin 1 g intravenously daily. 3. Meropenem 1 g intravenously every 8 hours. 4. Levemir insulin 50 units subcutaneously twice a day. 5. Humalog insulin 20 units subcutaneously three times a day with meals. 6. Enoxaparin 40 mg subcutaneously daily. 7. Losartan 100 mg daily. 8. Clopidogrel 75 mg daily. 9. Amlodipine 10 mg daily. 10. Morphine sulfate 4 mg intravenously every 4 hours p.r.n. severe pain. 11. Ondansetron 4 mg intravenously every 4 hours p.r.n. nausea and vomiting. FOLLOWUP INSTRUCTIONS: As previously stated, the patient was transferred to a local long-term acute care facility, namely [facility] where she will be under the care of her primary care physician, namely myself, Dr. Mike Nguyen. MIKE NGUYEN MD Job#: [id number] VIBHA cc: KISHA DUVALL DPM MTDD
== END 2018-07-19 14:42 | DRG 617 ==
LOC: ER 15:45 → ERHOLD 19:15 → MED/SURG2 07-16 14:56
PROVIDERS: ADMIT Internal Medicine; ATTEND Internal Medicine
PROC: 0Y6M0ZB Detachment at Right Foot, Partial 2nd Ray, Open Approach (ICD-10-PCS; 2018-07-17)
PROC: 0Y6M0ZC Detachment at Right Foot, Partial 3rd Ray, Open Approach (ICD-10-PCS; 2018-07-17)
PROC: 0Y6M0ZD Detachment at Right Foot, Partial 4th Ray, Open Approach (ICD-10-PCS; 2018-07-17)
PROC: 0Y6M0ZF Detachment at Right Foot, Partial 5th Ray, Open Approach (ICD-10-PCS; 2018-07-17)
PROC: 02HV33Z Insertion of Infusion Device into Superior Vena Cava, Percutaneous Approach (ICD-10-PCS; 2018-07-17)
PROC: 0Y6M0Z9 Detachment at Right Foot, Partial 1st Ray, Open Approach (ICD-10-PCS; principal; 2018-07-17 07:30)
DX: E11.69 Type 2 diabetes mellitus with other specified complication (principal); M86.9 Osteomyelitis, unspecified; N39.0 Urinary tract infection, site not specified; E44.0 Moderate protein-calorie malnutrition; I13.0 Hypertensive heart and chronic kidney disease with heart failure and stage 1 through stage 4 chronic kidney disease, or unspecified chronic kidney disease; Z79.4 Long term (current) use of insulin; E11.42 Type 2 diabetes mellitus with diabetic polyneuropathy; N17.9 Acute kidney failure, unspecified; D63.8 Anemia in other chronic diseases classified elsewhere; B95.61 Methicillin susceptible Staphylococcus aureus infection as the cause of diseases classified elsewhere; B95.2 Enterococcus as the cause of diseases classified elsewhere; E66.9 Obesity, unspecified; Z68.34 Body mass index [BMI] 34.0-34.9, adult; B96.20 Unspecified Escherichia coli [E. coli] as the cause of diseases classified elsewhere; E11.22 Type 2 diabetes mellitus with diabetic chronic kidney disease; N18.3 Chronic kidney disease, stage 3 (moderate); I50.9 Heart failure, unspecified; E78.1 Pure hyperglyceridemia; Z89.421 Acquired absence of other right toe(s)
CPT/HCPCS: 36415; 36569; 71045; 71046; 80048; 80053; 80061; 80202; 81001; 82550; 82553; 82948; 83036; 83605; 83690; 84443; 84484; 85025; 85610; 85651; 85730; 86140; 87071; 87075; 87086; 87186; 87205; 88304; 88307; 88311; 93306; 93925; 96372; 99284; J0360; J0692; J1100; J1650; J2001; J2185; J2250; J2405; J2543; J3370; J7030; J7050

== ENCOUNTER → 2018-10-10 | Day surgery (SDC) | payer MEDICARE ==
[2018-10-09 14:46] LABS: BASOPHILS % 0.4 % (0.0-1.0); EOSINOPHILS # (AUTO) 0.1 (0.0-0.4); EOSINOPHILS % 1.3 % (0.0-6.0); HEMATOCRIT 30.3 % (34.2-44.1); HEMOGLOBIN 10.4 g/dL (12.0-16.0); LYMPHOCYTES # (AUTO) 1.9 (1.0-3.2); LYMPHOCYTES % 34.8 % (18.0-39.1); MEAN CORPUSCULAR HEMOGLOBIN 32.6 pg (28-32); MEAN CORPUSCULAR HGB CONC 34.3 g/dL (31-35); MONOCYTES # (AUTO) 0.5 (0.2-0.8); MONOCYTES % 8.4 % (4.4-11.3); NEUTROPHILS # (AUTO) 3.1 (2.1-6.9); NEUTROPHILS % 54.7 % (38.7-80.0); PLATELET COUNT 166 x10e3/uL (140-360); RED BLOOD COUNT 3.19 x10e6/uL (3.6-5.1); RED CELL DISTRIBUTION WIDTH 13.1 % (11.7-14.4)
[2018-10-09 15:04] LABS: ALBUMIN 3.4 g/dL (3.5-5.0); ANION GAP 16.1 mmol/L (8-16); CALCIUM 10.2 mg/dL (8.4-10.2); CREATININE, SERUM 1.38 mg/dL (0.57-1.11); POTASSIUM 4.1 mmol/L (3.5-5.1)
[2018-10-10] VITALS (13 sets, daily range): BP systolic 123–190; BP diastolic 72–97
[~2018-10-10] VITALS: Ht 157.5 cm; Wt 75.7 kg
[~2018-10-10] MED LIST changes: +AMLODIPINE BESY10 MG PO; +CLOPIDOGREL BISULFATE 75 MG TAB ONE; +CLOPIDOGREL75 MG PO; +DIOVAN160 MG PO; +FENTANYL CITRATE/PF 100MCG/2 ML INJ ONE; +HEPARIN SOD (PORCINE) 1000 UNIT/ML 30ML ONE; +HEPARIN SOD/SOD CHLORIDE 1,000 ML ONE; +HEPARIN SOD/SOD CHLORIDE 2,000 ML ONE; +HYDROCHLOROTHIA25 MG PO; +IOPAMIDOL 300MG/ML 100 ML INFUS..BTL IV ONE; +LIDOCAINE HCL 1% LOCAL INJ 20 ML VIAL ONE; +LOVENOX40 MG/0.4 SC; +MIDAZOLAM HCL 2 MG/2 ML VIAL ONE; +SODIUM CHLORIDE 0.9% 1000ML 1,000 ML ONE; +VERAPAMIL HCL 2.5 MG/ML 2 ML VIAL ONE
--- OUTSIDE RECORDS SUMMARY | 2018-10-10 07:19 | XMS REPORT | Clinical Summary ---
Author Author [facility] Organization [facility] Address Unknown Phone Unavailable Care Team Providers Care Sterile Technician Name Role Phone Mike Amezcua MD PCP [...] CANCER SCREENING 1975 COLON CANCER SCREENING 2004 SHINGLES VACCINES ( of 2004 2) INFLUENZA VACCINE 04/04/2018 BREAST CANCER SCREENING 02/20/2019 02/20/2017 Results Not on fileafter 10/09/2017 Insurance Payer Benefit Subscriber ID Type Phone Address Plan / Group [facility] MEDICARE AARP xxxxxxxxx [facility] MEDICARE COMPLETE MCR Advance Directives Patient has advance care planning documents on file. For more information, randell hamm contact: Nilay Neumann [address] [place] [phone]
--- NOTE | 2018-10-10 14:50 | NUR ---
bedside report received from Krystin Carrasco RN. Alert oriented and appropriate, PERRLA, respirations even and unlabored to room air. Pulses x4 equal and strong. Pedal pulses PT/DP palpable. Cap fill brisk < 3 sec. Palpable hematoma to left groin not exceeding previous border tracing, approximately 1cm x 2cm estimated along femoral artery. No gross bleeding or immediate bruising seen. Education provided regarding s/s of hematoma and anticipated phases of resolution. pt verbalizes understanding. Skin warm and dry integrity appears intact. IV 20g to left hand presents healthy w/o s/s of infiltration or complaint w/ 0.9% NS at 75ml by iMed pump. Abdomen soft and supple. pt offered toileting, denies need to urinate or defecate. Family at bedside. Pt and family verbalizes understanding of POC r/t discharge. bedside telemetry NSR 94-98. VS wnl. BP trend reviewed-cgf
--- NOTE | 2018-10-10 15:55 | NUR ---
DC criteria met. Pt up to bathroom under own strength. Reinforced education regarding left groin care. Alert oriented and appropriate, PERRLA, respirations even and unlabored to room air. Pulses x4 equal and strong. Pedal pulses PT/DP palpable < 3 sec. Skin warm and dry integrity appears intact . IV 20g removed from left hand, tip appears intact. Abdomen soft and supple. Personal affects with patient. Family at bedside. Pt and family verbalizes understanding of POC. After dressing , groin checked again. Patient transferred to front of hospital via with discharge paperwork in hand -cgf
--- NOTE | 2018-10-12 10:21 | Operative Report ---
DATE OF PROCEDURE: PROCEDURES PERFORMED 1. Conscious sedation, 90 minutes. 2. Abdominal aortography. 3. Third-order peripheral angiography of the right lower extremity. 4. Primary thrombectomy. 5. Orbital atherectomy and percutaneous transluminal angioplasty of the right superficial femoral artery. 6. Orbital atherectomy and percutaneous transluminal angioplasty of the right anterior tibial artery. PREOPERATIVE DIAGNOSIS: Peripheral arterial disease with claudication with prior transmetatarsal amputation and wound. POSTOPERATIVE DIAGNOSIS: Peripheral arterial disease with claudication with prior transmetatarsal amputation and wound. ESTIMATED BLOOD LOSS: Less than 20 mL. SPECIMENS REMOVED: None. PROCEDURE DETAILS: After informed consent was obtained, the patient was brought to the cardiac catheterization laboratory in the fasting, nonsedated state. Bilateral groins were prepped and draped in the usual sterile fashion. Two percent lidocaine was infiltrated over the left anterior groin for local anesthesia. Using a micropuncture needle, the left common femoral artery was accessed via the modified Seldinger technique, and a 5-Telugu sheath was placed. Diagnostic abdominal aortography was performed using an Omniflush catheter. The same catheter was used to cross up and over the iliac bifurcation over a glide Advantage wire. Third-order peripheral angiography revealed an 80% severe midright superficial femoral artery stenosis, and a moderate stenosis of the popliteal vessel. The right anterior tibial artery had a severe proximal 90% stenosis. The peroneal artery was patent. The right posterior tibial had a long 100% chronic total occlusion. Next, I exchanged out and crossed a 45 cm up and over sheath and parked in the third-order position. Next, I was able to cross the superficial femoral and anterior tibial arteries with a Whisper wire and exchange it out for a Viper wire. I then performed orbital atherectomy of both lesions, and then performed balloon angioplasty of both lesions. The anterior tibial was dilated with a 3-mm balloon. The superficial femoral artery was dilated with a 5 mm drug coated balloon. Subsequent angiography revealed excellent angioplasty results on the treated lesions. After jain of hyperemia and more flow, the popliteal lesion appeared severe 70% to 80% stenosis. I then crossed a catheter and measured pressures on either side of the stenosis. There was a significant 40-50 mmHg gradient. Intervention was not chosen at this time given significant amount of radiation of contrast used during the case. The sheath was exchanged and hemostasis was achieved with manual pressure. The patient tolerated the procedure well. No immediate complications. Transported back to her room in stable condition. PROCEDURE FINDINGS 1. Right mid-SFA 80% stenosis. 2. Right popliteal 70% to 80% stenosis with a 40-50 mm gradient. 3. Right anterior tibial 90% stenosis proximally. 4. 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 INTERVENTIONS 1. Orbital atherectomy and percutaneous transluminal angioplasty of the right superficial femoral artery. 2. Orbital atherectomy and percutaneous transluminal angioplasty of the right anterior tibial artery. IMPRESSION AND RECOMMENDATIONS: A 63-year-old woman who had a prior wound with a transmetatarsal amputation and current claudication symptoms. She underwent successful intervention of the lesions described above. She will need to be brought back at a later date for intervention of the right popliteal and attempted intervention of the right posterior tibial vessel. Job#: [id number] VIBHA
== END | disposition home or self-care (01) ==
LOC: CATH LAB 07:16
PROVIDERS: ATTEND Internal Medicine Cardiovascular Disease
DX: I70.213 Atherosclerosis of native arteries of extremities with intermittent claudication, bilateral legs (principal); I70.92 Chronic total occlusion of artery of the extremities; Z89.431 Acquired absence of right foot; I10 Essential (primary) hypertension; E78.2 Mixed hyperlipidemia; E11.59 Type 2 diabetes mellitus with other circulatory complications; Z88.6 Allergy status to analgesic agent; Z01.812 Encounter for preprocedural laboratory examination; Z79.4 Long term (current) use of insulin; Z79.02 Long term (current) use of antithrombotics/antiplatelets; Z68.30 Body mass index [BMI] 30.0-30.9, adult; Z82.49 Family history of ischemic heart disease and other diseases of the circulatory system; Z82.3 Family history of stroke
CPT/HCPCS: 36415; 37225; 37229; 75625; 75710; 80053; 85025; C1724 ×2; C1725; C1760; C1769 ×2; C1887; C2623; J1644; J2001; J2250; J7030; Q9967; 36247; 37233

== ENCOUNTER 2018-10-25 20:04 | Emergency (ER) | payer MEDICARE, OTHER ==
[~2018-10-25] VITALS: Ht 157.5 cm; Wt 75.7 kg
[~2018-10-25 20:04] MED LIST changes: -FENTANYL CITRATE/PF 100MCG/2 ML INJ ONE; -HEPARIN SOD (PORCINE) 1000 UNIT/ML 30ML ONE; -HEPARIN SOD/SOD CHLORIDE 2,000 ML ONE; -IOPAMIDOL 300MG/ML 100 ML INFUS..BTL IV ONE; -LIDOCAINE HCL 2% LOCAL 20 ML VIAL ONE; -MIDAZOLAM HCL 2 MG/2 ML VIAL ONE; -NITROGLYCERIN/D5W 200 MCG/ML 250 ML ONE; -SODIUM CHLORIDE 0.9% 1000ML 1,000 ML ONE; -VERAPAMIL HCL 2.5 MG/ML 2 ML VIAL ONE
--- OUTSIDE RECORDS SUMMARY | 2018-10-25 20:08 | XMS REPORT | Clinical Summary ---
Author Author [facility] Organization [facility] [employer] Address Unknown Phone Unavailable Care Team Providers Care Automatic Packer Operator Name Role Phone Mike Amezcua MD [...] ID Type Phone Address Plan / Group [facility] MEDICARE AARP xxxxxxxxx [facility] MEDICARE COMPLETE MCR Advance Directives Patient has advance care planning documents on file. For more information, randell e contact: Nilay Neumann [address] [phone]
[2018-10-25 20:47] VITALS: BP 163/77
== END 2018-10-25 20:40 | disposition home or self-care (01) ==
LOC: ER 20:04
DX: I97.618 Postprocedural hemorrhage of a circulatory system organ or structure following other circulatory system procedure (principal); I10 Essential (primary) hypertension; E11.40 Type 2 diabetes mellitus with diabetic neuropathy, unspecified
CPT/HCPCS: 99283

== ENCOUNTER → 2018-10-25 | Day surgery (SDC) | payer MEDICARE, OTHER ==
[2018-10-24 14:06] LABS: BASOPHILS % 0.5 % (0.0-1.0); EOSINOPHILS # (AUTO) 0.1 (0.0-0.4); EOSINOPHILS % 1.4 % (0.0-6.0); HEMATOCRIT 29.3 % (34.2-44.1); HEMOGLOBIN 10.3 g/dL (12.0-16.0); LYMPHOCYTES % 33.5 % (18.0-39.1); MEAN CORPUSCULAR HGB CONC 35.2 g/dL (31-35); MEAN CORPUSCULAR VOLUME 93.9 fL (81-99); MONOCYTES # (AUTO) 0.5 (0.2-0.8); NEUTROPHILS # (AUTO) 3.3 (2.1-6.9); NEUTROPHILS % 55.3 % (38.7-80.0); PLATELET COUNT 181 x10e3/uL (140-360); RED BLOOD COUNT 3.12 x10e6/uL (3.6-5.1); RED CELL DISTRIBUTION WIDTH 13.1 % (11.7-14.4)
[2018-10-24 14:15] LABS: INR 0.8; PROTHROMBIN TIME 11.9 seconds (11.9-14.5)
[2018-10-24 14:24] LABS: ALBUMIN 3.3 g/dL (3.5-5.0); ANION GAP 15.3 mmol/L (8-16); CALCIUM 10.5 mg/dL (8.4-10.2); CREATININE, SERUM 1.35 mg/dL (0.57-1.11); POTASSIUM 4.3 mmol/L (3.5-5.1)
[2018-10-25] VITALS (9 sets, daily range): BP systolic 138–160; BP diastolic 68–82
[~2018-10-25] VITALS: Ht 157.5 cm; Wt 75.7 kg
[~2018-10-25] MED LIST changes: -CLOPIDOGREL BISULFATE 75 MG TAB ONE; -HEPARIN SOD/SOD CHLORIDE 1,000 ML ONE; +HYDRALAZINE HCL50 MG PO; +LEVEMIR100 UNIT/1 SC; -LIDOCAINE HCL 1% LOCAL INJ 20 ML VIAL ONE; +LIDOCAINE HCL 2% LOCAL 20 ML VIAL ONE; +LOSARTAN POTAS100 MG PO; -METFORMIN HCL500 MG; +METFORMIN HCL500 MG PO; +NITROGLYCERIN/D5W 200 MCG/ML 250 ML ONE; +PRAVASTATIN SOD80 MG PO
--- OUTSIDE RECORDS SUMMARY | 2018-10-25 06:38 | XMS REPORT | Clinical Summary ---
Author Author [facility] Organization [facility] Address Unknown Phone Unavailable Care Team Providers Care Patent Prosecution Paralegal Name Role Phone Mike Amezcua MD PCP [...] 1975 COLON CANCER SCREENING 2004 SHINGLES VACCINES (#1) 2004 INFLUENZA VACCINE 04/04/2018 BREAST CANCER SCREENING 02/20/2019 02/20/2017 Results Not on fileafter 10/24/2017 Insurance Payer Benefit Subscriber ID Type Phone Address Plan / Group [facility] MEDICARE AARP xxxxxxxxx [facility] MEDICARE COMPLETE MCR Advance Directives Patient has advance care planning documents on file. For more information, randell e contact: Nilay Neumann [address] [place] [phone]
--- NOTE | 2018-10-25 12:00 | NUR ---
Received report from Ivan WILEY. Reviewed medications given, orders and procedural events. Patient laying flat with right leg straight. Patient awake,alert, and orientedx3. Respirations even and unlabored on room air. Patient laying in stretcher with siderails elevatedx2. Call light within reach. No distress noted at this time. Patient tolerated po fluids and food. Patient denies nausea/vomiting. will monitor.
--- NOTE | 2018-10-25 12:30 | NUR ---
Reviewed discharge instructions with patient and family at bedside. Reviewed discharge medication reconciliation, followup appointment, activity restrictions, and dressing care. Reviewed what signs and symptoms to look for: when to call the doctor and when to call 911. Patient and family verbalized understanding.
--- NOTE | 2018-10-25 12:45 | NUR ---
Assisted patient getting dressed. Dressing to right groin had slight ooze but no additional bloody drainage. Right groin is soft upon palpation. Dressing to right inner ankle is clean,dry, and intact. IV to left forearm removed and dressing placed per protocol. 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 No distress noted at time of discharge.
--- NOTE | 2018-11-05 09:22 | Operative Report ---
DATE OF PROCEDURE: 10/25/2018 SURGEON: Bryan Monterroso DO CARDIOLOGY PROCEDURE NOTE PROCEDURES PERFORMED: 1. First order antegrade peripheral angiography of the right lower extremity. 2. Conscious sedation, 60 minutes. 3. Primary thrombectomy, arterial. 4. Orbital atherectomy and percutaneous transluminal angioplasty of the right popliteal artery. PREPROCEDURE DIAGNOSES: Peripheral arterial disease with prior wounds and transmetatarsal amputation. POSTPROCEDURE DIAGNOSES: Peripheral arterial disease with prior wounds and transmetatarsal amputation. ESTIMATED BLOOD LOSS: Less than 20 mL. SPECIMENS: None. PROCEDURE IN DETAIL: After informed consent was obtained, the patient was brought to the cardiac catheterization laboratory in a fasting and nonsedated state. Bilateral groins were prepped and draped in the usual sterile fashion. Lidocaine 2% was infiltrated over the right anterior groin for local anesthesia. Using ultrasound guidance, the right femoral artery was accessed via modified Seldinger technique in an antegrade approach with placement of a 23 cm 6-Swedish sheath. Diagnostic angiography revealed a 70% popliteal stenosis and a chronic total occlusion of the posterior tibial vessel. The previously angioplastied superficial femoral and anterior tibial arteries were patent. Decision was made to perform percutaneous intervention. The patient received systemic heparin for therapeutic anticoagulation. Next, I attempted to cross the chronic total occlusion of the posterior tibial vessels with wire escalation without success. Next, I placed a Viper wire, past the popliteal stenosis, performed orbital atherectomy and then balloon angioplasty with a Lutonix drug-coated balloon. The patient's angioplasty results of the popliteal vessel confirmed excellent results. She was transferred back to the room in stable condition without any complications. PROCEDURAL FINDINGS: 1. The right lower extremity femoral system is patent. 2. Right popliteal artery has a 70% stenosis. 3. The right anterior tibial and peroneal vessels are patent. The tibioperoneal trunk is patent. There is a chronic total occlusion of the right posterior tibial. Bryan Monterroso DO BM/MODL /[id number]
== END | disposition home or self-care (01) ==
LOC: CATH LAB 06:33
PROVIDERS: ATTEND Internal Medicine Cardiovascular Disease
DX: I70.201 Unspecified atherosclerosis of native arteries of extremities, right leg (principal); I70.92 Chronic total occlusion of artery of the extremities; I10 Essential (primary) hypertension; E13.8 Other specified diabetes mellitus with unspecified complications; Z89.421 Acquired absence of other right toe(s); Z88.6 Allergy status to analgesic agent; Z01.812 Encounter for preprocedural laboratory examination; Z79.4 Long term (current) use of insulin; Z79.02 Long term (current) use of antithrombotics/antiplatelets; Z68.31 Body mass index [BMI] 31.0-31.9, adult; Z82.49 Family history of ischemic heart disease and other diseases of the circulatory system; Z82.3 Family history of stroke
CPT/HCPCS: 36415; 37186; 37225; 80053; 85025; 85610; C1724; C1725; C1760; C1766; C1769; J1644; J2001; J2250; J7030; Q9967

== ENCOUNTER → 2018-11-07 | Outpatient (CLI) | payer MEDICARE ==
--- NOTE | 2018-11-07 17:25 | Diagnostic Imaging Report ---
Exam: Bone mineral density study. History: MENOPAUSE, calcium supplementation, broken wrist 2002 Comparison: Lumbar spine November 05, 2012. The left hip prior is dissimilar scan type which prevents strict comparison. Discussion: Evaluation of the left hip and lumbar spine was performed. The study is technically adequate. The patient's fracture risk is compared to an age-matched control. The patient denies prior surgery/fracture of the spine, hips or forearm. Left hip femoral neck bone mineral density: 0.6 g/cm2, T-score is -2.5, Z-score is -1. Left hip total bone mineral density: 0.7 g/cm2, T-score is -2.4, Z-score is -1.2. Lumbar spine total bone mineral density: 1 g/cm2, T-score is -0.8, Z-score is 0.9. The BMD change versus baseline is + 6.7% (statistically significant). Impression: Bone mineralization by WHO Classification is osteoporosis, the fracture risk is high. Signed by: Lia CarreroO., M.M.M. on 11/07/2018 5:21 PM
== END ==
LOC: MAMMO 10:04
PROVIDERS: ATTEND Internal Medicine
DX: Z12.31 Encounter for screening mammogram for malignant neoplasm of breast (principal); Z13.820 Encounter for screening for osteoporosis; Z78.0 Asymptomatic menopausal state
CPT/HCPCS: 77067; 77080

== ENCOUNTER 2018-11-29 10:02 | Observation (INO) | payer MEDICARE, OTHER ==
[2018-11-28 13:55] LABS: BASOPHILS % 0.7 % (0.0-1.0); EOSINOPHILS # (AUTO) 0.1 (0.0-0.4); EOSINOPHILS % 1.7 % (0.0-6.0); HEMATOCRIT 31.6 % (34.2-44.1); HEMOGLOBIN 10.8 g/dL (12.0-16.0); LYMPHOCYTES # (AUTO) 1.9 (1.0-3.2); LYMPHOCYTES % 32.6 % (18.0-39.1); MEAN CORPUSCULAR HEMOGLOBIN 32.8 pg (28-32); MEAN CORPUSCULAR HGB CONC 34.2 g/dL (31-35); MONOCYTES # (AUTO) 0.5 (0.2-0.8); MONOCYTES % 8.7 % (4.4-11.3); NEUTROPHILS # (AUTO) 3.3 (2.1-6.9); NEUTROPHILS % 56.1 % (38.7-80.0); PLATELET COUNT 195 x10e3/uL (140-360); RED BLOOD COUNT 3.29 x10e6/uL (3.6-5.1); RED CELL DISTRIBUTION WIDTH 13.1 % (11.7-14.4)
[2018-11-28 14:05] LABS: INR 0.82; PROTHROMBIN TIME 11.8 seconds (11.9-14.5)
[2018-11-28 14:12] LABS: ALBUMIN 3.2 g/dL (3.5-5.0); ALBUMIN/GLOBULIN RATIO 0.7 (0.8-2.0); ANION GAP 14.2 mmol/L (8-16); CALCIUM 9.6 mg/dL (8.4-10.2); CREATININE, SERUM 1.54 mg/dL (0.57-1.11); POTASSIUM 4.2 mmol/L (3.5-5.1)
[~2018-11-29] VITALS: Ht 157.5 cm; Wt 75.7 kg
[2018-11-29] VITALS (17 sets, daily range): BP systolic 130–165; BP diastolic 60–99
[~2018-11-29 10:02] MED LIST changes: +BENZONATATE100 MG PO; +CEFDINIR PO
--- OUTSIDE RECORDS SUMMARY | 2018-11-29 10:05 | XMS REPORT | Clinical Summary ---
Author Author [facility] Organization [facility] Address Unknown Phone Unavailable Care Team Providers Care Merchandise Handler Name Role Phone Mike Amezcua MD PCP [...] SCREENING 02/20/2019 02/20/2017 Results Not on fileafter 11/28/2017 Insurance Payer Benefit Subscriber ID Type Phone Address Plan / Group [facility] MEDICARE AARP xxxxxxxxx [facility] MEDIC[facility] COMPLETE MCR Advance Directives Patient has advance care planning documents on file. For more information, randell e contact: Nilay Neumann [address] [place] [phone]
[2018-11-29] MEDS ORDERED: FENTANYL CITRATE/PF 100MCG/2 ML INJ ONE (10:28)
[2018-11-29] MEDS ORDERED: HEPARIN SOD/SOD CHLORIDE 2,000 ML ONE (10:28)
[2018-11-29] MEDS ORDERED: IOPAMIDOL 300MG/ML 100 ML INFUS..BTL IV ONE ×2 (10:28→11:21)
[2018-11-29] MEDS ORDERED: HEPARIN SOD (PORCINE) 1000 UNIT/ML 30ML ONE (10:28)
[2018-11-29] MEDS ORDERED: NITROGLYCERIN/D5W 200 MCG/ML 250 ML ONE (10:28)
[2018-11-29] MEDS ORDERED: MIDAZOLAM HCL 2 MG/2 ML VIAL ONE ×2 (10:28→11:16)
[2018-11-29] MEDS ORDERED: LIDOCAINE HCL 2% LOCAL 20 ML VIAL ONE ×2 (10:28→11:44)
[2018-11-29] MEDS ORDERED: SODIUM CHLORIDE 0.9% 1000ML 1,000 ML ONE (10:28)
--- NOTE | 2018-11-29 13:10 | NUR ---
1310 Received pt in room #9 Peripheral rt groin sheath in place Left pedal Trband in place intact site.Back to baseline orientation. Left iv site w/o s/s infiltration. Resp shallow and regular 96% sat on room air.Abdomen soft and nontender Void qs clear urine. Jayesh PPx4 with doppler. 1400 act due resulted 268 received order to pull sheath, Titration TR band left leg at 1445. Denies co No gross signs of pain,pressure,pallor or dysrhythmia. ds/rn
--- NOTE | 2018-11-29 14:00 | NUR ---
1400 act 268 inform electrophysiology technologist Laura and Head nurse Ivan white to pull per Dr Kriss Esquivel RN
[2018-11-29] MEDS ORDERED: ATROPINE SULFATE 0.1 MG/ML 10ML SYR ONE (14:54)
--- NOTE | 2018-11-29 15:00 | NUR ---
1500 TRband titration started (14cc) -2cc (+12cc)no signs of gross problems pain,pressure,pallor or dysrhythmia 1515 -2cc (+10cc)no signs pain pallor,pressure or dysrhythmia. 1530 -2cc (+8cc)no signs pain,pallor,pressure or dysrhythmia ds/rn
--- NOTE | 2018-11-29 16:15 | NUR ---
1615pm received pt bed 101 awaiting cleaning for disposition for monitoring flat till 915pm and dc at 930pm,Explained discharge instructions and has copies of POC aware of importance of followup care. House supv. aware of bed disposition to [facility]. emma/rn
[2018-11-29] MEDS ORDERED: HYDROCODONE/APAP 5MG-325MG TAB ONE (17:01)
--- NOTE | 2018-11-29 17:15 | NUR ---
1715 PT VOIDs AND C/O DISCOMFORT," READY FOR PAIN MEDICATION "02/11 to LOW BACK AND rt groin site, no GROSS ISSUES OF PALLOR,PRESSURE OR DYSRHYTHMIA. PO norco with site h20 Tolerated snack tray sandwich. ds/rn
[2018-11-29] MEDS ORDERED: HYDROCODONE/APAP 5MG-325MG TAB PO PRN (17:30)
--- NOTE | 2018-11-29 17:30 | NUR ---
1730 TR band titration completed left pedal site. Denies co has Narco for pain given No gross signs of pain,pallor, pressure or dysarthria.Unique teran place to left leg Rt femoral Catherine patch intact w/o s/s hematoma or bleeding. Phone telephone report. Tele obtained for transfer to floor care. ds/rn
--- NOTE | 2018-11-29 18:15 | NUR ---
1814 Phone report given and pt transfered to tele observation bed Rm #101. Pain level at 2/10 post po Narco 5/325 at 1715. Pt Has documentation of dc papers and aware of importance to followup care with Tatiana as [place] driver cell [phone] and will return to hospital at 2115pm or dc at 2130pm if pt remain stable w/o gross signs pain,pllor,pressure or dysrhythmia. All belongings with pt and explained use of waffle mattress pad for home use. Aware must hold metformin for 3days. iv saline lock remains intact w/o s/s infiltration Left pedal TR band site intact with coban dressing and rt femoral Catherine patch intact over rt groin pull sheath site. left pt bedside. No c/o CP or SOB handoff was completed. with bed in low position,call light at bedside and nasreen rails up awre down time till 2115pm and must call for help.
--- OUTSIDE RECORDS SUMMARY | 2018-11-29 18:21 | XMS REPORT | Clinical Summary ---
Author Author [employer] [facility] [employer] Address Unknown Phone Unavailable Care Team Providers Care Mgmt Consultant Name Role Phone Mike Amezcua MD PCP [...] ID Type Phone Address Plan / Group [facility] MEDICARE AARP xxxxxxxxx [facility] MEDICARE COMPLETE MCR Advance Directives Patient has advance care planning documents on file. For more information, randell e contact: Nilay Neumann [address] [place] [phone]
--- NOTE | 2018-11-29 18:39 | NUR ---
Patient arrived to unit from seed analysis laboratory assistant. Right groin dressing clean and dry. No bleeding noted. LEft TR band site clean and dry with coban. Pedal pulses palpable. No c/o pain. Patient to lie flat until 2119.
--- NOTE | 2018-11-29 19:10 | NUR ---
Received report from morning rn.walking rounds done.pt is lyeing quietly in the bed.bed rest till 21:15.dressing site is dry and intact.keep monitor the pt.tele #34 placed.iv #20 to left fore arm.as per the report Jimenez did all the discharge paper work and pt's sister in law signed the papers. pt verbalised understanding.
--- NOTE | 2018-11-29 21:50 | NUR ---
Received discharge order from dr.Metz Adams.tele running sr.iv cannula removed and applied pressure dressing.tele box returned to the respective dept.informed to rn hemodialysis charge. incision site is dry and intact.pt left to the unit in a wheel chair in a stable condition.
--- NOTE | 2018-12-13 23:14 | Operative Report ---
DATE OF PROCEDURE: 11/29/2018 SURGEON: Bryan Monterroso DO PROCEDURES PERFORMED: 1. Conscious sedation 90 minutes. 2. Unilateral extremity angiography. 3. Third-order peripheral angiography of the left lower extremity. 4. Attempted percutaneous transluminal angioplasty of the left popliteal artery. PREPROCEDURE DIAGNOSIS: Claudication with peripheral arterial disease. POSTOPERATIVE DIAGNOSIS: Claudication with peripheral arterial disease. ESTIMATED BLOOD LOSS: Less than 20 mL. SPECIMEN REMOVED: None. PROCEDURE IN DETAIL: After informed consent was obtained, the patient was brought to the cardiac catheterization laboratory in a fasting and nonsedated state. Bilateral groins were prepped and draped in the usual sterile fashion. A 2% lidocaine was instilled over the right anterior groin for local anesthesia. Using micropuncture needle, the right common femoral artery was accessed via modified Seldinger technique and a 5-Iranian sheath was placed. 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 Next, I crossed an up and over 65 cm sheath. The patient received systemic heparin for therapeutic anticoagulation. Multiple stents were used to cross the chronic total occlusion with multiple wires without success. These tracked into multiple dissection planes and decision was made to terminate this procedure. Sheath was removed and hemostasis was achieved via Mynx device. The patient tolerated the procedure well with no immediate complications, transferred back to her room in stable condition. PROCEDURE FINDINGS: The left iliac and proximal superficial femoral artery vessels are patent with mild luminal irregularities. The distal SFA is a 20% stenosis. The left popliteal artery has a chronic total occlusion with three-vessel reconstitution below the knee. RECOMMENDATIONS: The patient will be brought back for pedal approach of revascularization of the left popliteal artery. Bryan Monterroso DO BM/MODL /[id number]
[2018-12-24] MEDS ORDERED: FUROSEMIDE40 MG PO (10:09)
== END 2018-11-29 22:03 | disposition home or self-care (01) ==
LOC: CATH LAB 10:02 → MED/SURG 18:18
PROVIDERS: ADMIT Internal Medicine Cardiovascular Disease; ATTEND Internal Medicine Cardiovascular Disease
DX: I70.213 Atherosclerosis of native arteries of extremities with intermittent claudication, bilateral legs (principal); I70.92 Chronic total occlusion of artery of the extremities; I10 Essential (primary) hypertension; E78.2 Mixed hyperlipidemia; E11.9 Type 2 diabetes mellitus without complications; R07.2 Precordial pain; R60.9 Edema, unspecified; Z88.6 Allergy status to analgesic agent; Z01.812 Encounter for preprocedural laboratory examination; Z82.3 Family history of stroke; Z82.49 Family history of ischemic heart disease and other diseases of the circulatory system; Z84.1 Family history of disorders of kidney and ureter
CPT/HCPCS: 36415 ×2; 37224; 80053; 82948; 85025; 85610; C1766; C1769 ×3; C1887; G0378; J1644; J2001; J2250; J7030; Q9967; 36247; 75710

== ENCOUNTER → 2019-02-14 | Day surgery (SDC) | payer MEDICARE, OTHER ==
[2019-02-12 11:05] LABS: BASOPHILS % 0.4 % (0.0-1.0); EOSINOPHILS # (AUTO) 0.1 (0.0-0.4); EOSINOPHILS % 1.2 % (0.0-6.0); HEMATOCRIT 33.7 % (34.2-44.1); HEMOGLOBIN 11.8 g/dL (12.0-16.0); LYMPHOCYTES # (AUTO) 2.3 (1.0-3.2); LYMPHOCYTES % 33.2 % (18.0-39.1); MEAN CORPUSCULAR HEMOGLOBIN 32.6 pg (28-32); MEAN CORPUSCULAR VOLUME 93.1 fL (81-99); MONOCYTES # (AUTO) 0.6 (0.2-0.8); MONOCYTES % 8.9 % (4.4-11.3); NEUTROPHILS # (AUTO) 3.8 (2.1-6.9); NEUTROPHILS % 56.2 % (38.7-80.0); PLATELET COUNT 190 x10e3/uL (140-360); RED BLOOD COUNT 3.62 x10e6/uL (3.6-5.1)
[2019-02-12 11:17] LABS: INR 0.88; PROTHROMBIN TIME 12.4 seconds (11.9-14.5)
[2019-02-12 11:26] LABS: ALBUMIN/GLOBULIN RATIO 1.1 (0.8-2.0); ANION GAP 12.1 mmol/L (8-16); CALCIUM 11.6 mg/dL (8.4-10.2); CREATININE, SERUM 1.46 mg/dL (0.57-1.11); POTASSIUM 4.1 mmol/L (3.5-5.1)
[~2019-02-14] VITALS: Ht 157.5 cm; Wt 76.2 kg
[2019-02-14] VITALS (10 sets, daily range): BP systolic 138–176; BP diastolic 55–77
[~2019-02-14] MED LIST changes: +FENTANYL CITRATE/PF 100MCG/2 ML INJ ONE; +FUROSEMIDE40 MG PO; +HEPARIN SOD (PORCINE) 1000 UNIT/ML 30ML ONE; +HEPARIN SOD/SOD CHLORIDE 2,000 ML ONE; +IOPAMIDOL 300MG/ML 100 ML INFUS..BTL IV ONE; +LIDOCAINE HCL 2% LOCAL 20 ML VIAL ONE; +MIDAZOLAM HCL 2 MG/2 ML VIAL ONE; +MULTI-VITAMIN1 EACH PO; +NITROGLYCERIN/D5W 200 MCG/ML 250 ML ONE; +SODIUM CHLORIDE 0.9% 1000ML 0 ML ONE; +SODIUM CHLORIDE 0.9% 1000ML 1,000 ML ONE; +VASCEPA PO; +VERAPAMIL HCL 2.5 MG/ML 2 ML VIAL ONE; +VITAMIN B-121000 MC1 PO; +VITAMIN D400 UNIT PO
--- OUTSIDE RECORDS SUMMARY | 2019-02-14 07:21 | XMS REPORT | Clinical Summary ---
Author Author [employer] Organization [employer] Address Unknown Phone Unavailable Care Team Providers Care Sap Architect Name Role Phone Mike Amezcua MD PCP [...] Health Maintenance Due Date Last Done Comments COLONOSCOPY SCREENING 2004 SHINGLES VACCINES (#1) 2004 BREAST CANCER SCREENING 02/20/2019 02/20/2017 INFLUENZA VACCINE 04/04/2019 Results Not on fileafter 02/13/2018 Insurance Type Payer Benefit Subscriber ID Effective Phone Address Plan / Dates Group O [facility] MEDICARE AARP xxxxxxxxx 2017-P MEDICARE resent COMPLETE [facility] Advance Directives Patient has advance care planning documents on file. For more information, randell hamm contact: Nilay Neumann [address] [place] [phone]
--- NOTE | 2019-02-14 11:01 | NUR ---
1101am Received pt in Rm #10 Identiferx2 s/p Dr Monterroso Peripheral no fix Left with 20cc air. TR band intact no s/s hematoma or oozing.No gross issues pain pallor pressure or dysrhythmia. Back to baseline orientation. Resp shallow and regular. Abdomen soft and non tender denies necessity to defecate or urinate. Bilateral PPx4 palpable Left ac iv w/o s/s infiltratin. HOB elevated. served snack tray tolerating po intake. Called daughter with updated regarding necessity surgical consult. Ride requested to arrive at 1300pm Will reduce air at 1230pm Denies CP or SOB SR with stable VS. POC discussed with pt Ride to sign dc papers, emma/rn
--- NOTE | 2019-02-14 13:00 | NUR ---
2ml removed from left ankle TR band. + neurovascular function w/o discoloration.
--- NOTE | 2019-02-14 13:30 | NUR ---
1330 Left Pedal TR band site healthy 2x2 dressing intact no hematoma or bleeding. PPx4 palpable. NO gross issues pain pallor pressure or dysrhythmia. Has copies of dc plan. Attempts x2 for ride connection made for pt. With POC discussed and aware of importance of f/o. No c/o CP or SOB vs stable and monitor remains Stable escorted to medical transport via insurance company per w/c w/o incident. Assisted to car per [facility] employee. emma/rn
--- NOTE | 2019-02-14 14:11 | Operative Report ---
DATE OF PROCEDURE: 02/14/2019 SURGEON: Bryan Monterroso DO PROCEDURES PERFORMED: 1. Conscious sedation, 90 minutes. 2. Third order peripheral angiography. 3. Unilateral extremity angiography. 4. Attempted percutaneous transluminal angioplasty of the left popliteal artery. PREPROCEDURE DIAGNOSIS: Peripheral vascular disease. POSTPROCEDURE DIAGNOSIS: Peripheral vascular disease. ESTIMATED BLOOD LOSS: Less than 10 mL. SPECIMENS REMOVED: None. PROCEDURE IN DETAIL: After informed consent was obtained, the patient was brought to the cardiac catheterization laboratory in a fasting and nonsedated state. Her left ankle was prepped and draped in usual sterile fashion. Using ultrasound guidance, the left posterior tibial artery was accessed and a 5-Maori pedal sheath was placed. Next diagnostic imaging in the third order position revealed significantly occluded 100% popliteal stenosis. Next, using a microcatheter and a Whisper wire, this was taken up to the distal cap of the chronic total occlusion. Next, I attempted multiple attempts utilizing multiple wires to cross through the chronic total occlusion. At one point, the wire crossed into a femoral vein. There was no significant hematoma or significant dissection at the end of the case. Everything was subsequently removed from the body. Hemostasis was achieved via TR band around the ankle. The patient tolerated the procedure well with no immediate complications, transferred back to her room in stable condition. 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 RECOMMENDATIONS: The patient will need to follow up with her nursing specialist regarding wound care of her right callus area. The patient will be referred for Vascular Surgery revascularization. Bryan Monterroso DO BM/MODL /[id number]
== END | disposition home or self-care (01) ==
LOC: CATH LAB 07:03
PROVIDERS: ATTEND Internal Medicine Cardiovascular Disease
DX: I70.202 Unspecified atherosclerosis of native arteries of extremities, left leg (principal); I70.92 Chronic total occlusion of artery of the extremities; S91.301A Unspecified open wound, right foot, initial encounter; X58.XXXA Exposure to other specified factors, initial encounter; Z01.812 Encounter for preprocedural laboratory examination; Z79.4 Long term (current) use of insulin; Z79.02 Long term (current) use of antithrombotics/antiplatelets
CPT/HCPCS: 36415; 37224; 75710; 80053; 85025; 85610; C1769 ×2; C1887; J1644; J2001; J2250; J7030; Q9967; 36217

== ENCOUNTER → 2019-04-18 | Day surgery (SDC) | payer MEDICARE ==
[2019-04-09 16:57] LABS: BASOPHILS % 0.5 % (0.0-1.0); EOSINOPHILS # (AUTO) 0.1 (0.0-0.4); EOSINOPHILS % 1.2 % (0.0-6.0); HEMATOCRIT 31.1 % (34.2-44.1); HEMOGLOBIN 10.7 g/dL (12.0-16.0); LYMPHOCYTES # (AUTO) 1.8 (1.0-3.2); LYMPHOCYTES % 30.1 % (18.0-39.1); MEAN CORPUSCULAR HEMOGLOBIN 32.7 pg (28-32); MEAN CORPUSCULAR HGB CONC 34.4 g/dL (31-35); MEAN CORPUSCULAR VOLUME 95.1 fL (81-99); MONOCYTES # (AUTO) 0.5 (0.2-0.8); MONOCYTES % 8.8 % (4.4-11.3); NEUTROPHILS # (AUTO) 3.4 (2.1-6.9); NEUTROPHILS % 59.1 % (38.7-80.0); PLATELET COUNT 163 x10e3/uL (140-360); RED BLOOD COUNT 3.27 x10e6/uL (3.6-5.1); RED CELL DISTRIBUTION WIDTH 11.9 % (11.7-14.4)
[~2019-04-18] MED LIST changes: +CALCIUM PO; +GLUCAGON FOR INJ 1 MG VIAL ONE; +GLUCOSAMINE1000 MG PO; +HAIR, SKIN & N1 EACH PO; -HEPARIN SOD (PORCINE) 1000 UNIT/ML 30ML ONE; -HEPARIN SOD/SOD CHLORIDE 2,000 ML ONE; +HYOSCYAMINE 0.125 MG TAB ONE; +INSULIN REGULAR, HUMAN 100 UNIT/1 ML 3ML VIAL ONE; -IOPAMIDOL 300MG/ML 100 ML INFUS..BTL IV ONE; -LIDOCAINE HCL 2% LOCAL 20 ML VIAL ONE; -NITROGLYCERIN/D5W 200 MCG/ML 250 ML ONE; +PRENATAL GUMMY PO; +PROPOFOL IV EMULSION 10 MG/ML 50 ML VIAL ONE; -SODIUM CHLORIDE 0.9% 1000ML 0 ML ONE; -SODIUM CHLORIDE 0.9% 1000ML 1,000 ML ONE; -VERAPAMIL HCL 2.5 MG/ML 2 ML VIAL ONE
--- OUTSIDE RECORDS SUMMARY | 2019-04-18 06:34 | XMS REPORT ---
[facility] Address Unknown Phone Unavailable Care Team Providers Care Manager Investment Name Role Phone FAISAL NGUYEN Unavailable Unavailable Problems This patient has no known problems. Allergies, Adverse Reactions, Alerts This patient has no known allergies or adverse reactions. Medications This patient has no known medications. Results Test Description Test Time Test Comments Text Results Atomic Results Result Comments BONE DXA DUAL ENERGY 2018-11-07 17:19:00 [place] [address] Patient Name: AURY RENTERIA MR #: [id number] : 1955 Age/Sex: 63/F Req #: [id number] [facility] Physician: Ordered by: FAISAL NGUYEN MD Report #: [id number] Location: [facility] Room/Bed: Procedure: [id number] DX/BONE DXA DUAL ENERGY Exam Date: Exam Time: REPORT STATUS: Signed Exam: Bone mineral density study. History: MENOPAUSE, calcium supplementation, broken wrist 2002 Comparison: Lumbar spine November 05, 2012. The left hip prior is dissimilar scan type which prevents strict comparison. Discussion: Evaluation of the left hip and lumbar spine was performed. The study is technically adequate. The patient's fracture risk is compared to an age-matched control. The patient denies prior surgery/fracture of the spine, hips or forearm. Left hip femoral neck bone mineral density: 0.6 g/cm2, T-score is -2.5, Z-score is -1. Left hip total bone mineral density: 0.7 g/cm2, T-score is -2.4, Z-score is -1.2. Lumbar spine total bone mineral density: 1 g/cm2, T-score is -0.8, Z-score is 0.9. The BMD change versus baseline is + 6.7% (statistically significant). Impression: Bone mineralization by WHO Classification is osteoporosis, the fracture risk is high. Signed by: Dr. Gurpreet Carbajal D.O., M.M.M. on 11/07/2018 5:21 PM Dictated By: GURPREET CARBAJAL DO 20 Transcribed By: SHERRIE on 11/07/181720 COPY TO: FAISAL NGUYEN MD MAMMOGRAPHY DIGITAL SCR BILAT 2018-11-07 11:13:00 [place] [address] Patient Name: AURY RENTERIA MR #: [id number] : 1955 Age/Sex: 63/F Req #: [id number] Adm Physician: Ordered by: FAISAL NGUYEN MD Report #: [id number] Location: MAMMO Room/Bed: Procedure: [id number] MG/MAMMOGRAPHY DIGITAL SCR BILAT Exam Date: 11/07/18 Exam Time: 1008 REPORT STATUS: Signed #[id number] - [id number] #BILATERAL DIGITAL SCREENING MAMMOGRAM WITH CAD: 11/07/2018 CLINICAL: Routine screening. Comparison is made to exam dated: 02/20/2017 mammogram - [facility]. Current study contains 4 films. There are scattered fibroglandular elements in both breasts. Current study was also evaluated with a Computer Aided Detection (CAD) system. There are benign vascular calcifications and calcifications in both breasts. No significant masses, calcifications, or other findings are seen in either breast. There has been no significant interval change. IMPRESSION: BENIGN There is no mammographic evidence of malignancy. A 1 year screening mammogram is recommended. The patient will be notified by letter of the results. Yovani marks/caty:11/16/2018 11:10:57 [employer]: [employer] (R)([place]), [facility] letter sent: Normal Exam Mammogram BI-RADS: 2 Benign Dictated By: YOVANI BYRNE DO 1110 Transcribed By: CATY on 11/16/18 1110 COPY TO: FAISAL NGUYEN MD CHEST XRAY LINE PLACEMENT 2018-07-17 11:30:00 [place] [address] Patient Name: AURY RENTERIA MR #: [id number] : 1955 Age/Sex: 62/F Req #: [id number] [facility] Physician: FAISAL NGUYEN MD Ordered by: FAISAL NGUYEN MD Report #: [id number] Location: [facility] Room/Bed: [facility] Procedure: [id number] DX/CHEST XRAY LINE PLACEMENT Exam Date: 07/17/18 Exam Time: 1030 REPORT STATUS: Signed PROCEDURE: A single AP view of the chest. COMPARISON: [facility], , CHEST 2 VIEWS, 07/15/2018, 22:41. INDICATIONS: PICC LINE PLACEMENT FINDINGS: See impression. IMPRESSION: 1. interval placement of right-sided PICC line, with distal tip projecting at the cavoatrial junction. 2. Lungs are well inflated and grossly clear. No consolidation or effusion. Stable calcified granuloma or bone island projecting in the lateral right lower lung. 3. Cardiac mediastinal silhouette is unremarkable. Roland Hoover M.D. Dictated by: Roland Hoover M.D. on 07/17/2018 at 11:30 Electronically approved by: Roland Hoover M.D. on 07/17/2018 at 11:30 Dictated By: ROLAND HOOVER MD 1130 Transcribed By: JHON on 07/17/18 1130 COPY TO: FAISAL NGUYEN MD MRI FOOT RIGHT WO 2018-07-16 13:28:00 [place] [address] Patient Name: AURY RENTERIA MR #: [id number] : 1955 Age/Sex: 62/F Req #: [id number] Adm Physician: FAISAL NGUYEN MD Ordered by: ANIVAL OSHEA DPM Report #: [id number] Location: [facility] Room/Bed: [place] [address] Procedure: [id number] MRI/MRI FOOT RIGHT WO Exam Date: Exam Time: REPORT STATUS: Signed TECHNIQUE: Magnetic resonance imaging of the RIGHT foot was performed WITHOUT injected contrast. HISTORY: Necrotic right third toe, evaluate for osteomyelitis COMPARISON: None available. DISCUSSION: Prior amputation across the proximal phalanx second toe. Fragmented middle phalanx third toe. Bone marrow edema and mild T1 signal change involving the middle and distal phalanges of the third toe and distal phalanx of the fourth toe. Degenerative arthrosis of the first MTP joint and scattered midfoot Mild generalized soft tissue edema of the forefoot. IMPRESSION: Ischemic change versus osteomyelitis of the middle and distal phalanx third toe and distal phalanx fourth toe Signed by: Dr. Jhony Bolivar M.D. on 07/16/2018 1:33 PM Dictated By: JHONY BOLIVAR MD 1333 Transcribed By: SHERRIE on 07/16/18 1333 COPY TO: ANIVAL OSHEA DPM CHEST 2 VIEWS 2018-07-15 23:07:00 [place] [address] Patient Name: AURY RENTERIA MR #: [id number] : 1955 Age/Sex: 62/F Req #: [id number] Adm Physician: FAISAL NGUYEN MD Ordered by: FAISAL NGUYEN MD Report #: [id number] Location: [facility] Room/Bed: [place] [address] Procedure: [id number] DX/CHEST 2 VIEWS Exam Date: 07/15/18 Exam Time: 0 REPORT STATUS: Signed EXAMINATION: CHEST 2 VIEWS INDICATION: Diabetes and hypertension. COMPARISON: None FINDINGS: PA and lateral views TUBES and LINES: None. LUNGS: Lungs are well inflated. Calcified granuloma or bone island projecting over the right lateral lung base. There is no evidence of pneumonia or pulmonary edema. PLEURA: No pleural effusion or pneumothorax. HEART AND MEDIASTINUM: The cardiomediastinal silhouette is unremarkable. BONES AND SOFT TISSUES: No acute osseous lesion. Soft tissues are unremarkable. UPPER ABDOMEN: No free air under the diaphragm. IMPRESSION: No acute thoracic abnormality. Signed by: DR. Juwan Farris MD on 07/15/2018 11:08 PM Dictated By: JUWAN FARRIS MD 07 Transcribed By: SHERRIE on 07/15/182307 COPY TO: FAISAL NGUYEN MD FOOT RIGHT COMPLETE 2018-07-15 17:16:00 [place] [address] Patient Name: AURY RENTERIA MR #: [id number] : 1955 Age/Sex: 62/F Req #: [id number] Adm Physician: Ordered by: DERREK BOND NP Report #: [id number] Location: ER Room/Bed: Procedure: [id number] DX/FOOT RIGHT COMPLETE Exam Date: 07/15/18 Exam [...] SHERRIE on 07/15/181718 COPY TO: DERREK BOND UNDERWRITING ASSISTANT
--- OUTSIDE RECORDS SUMMARY | 2019-04-18 06:34 | XMS REPORT | Continuity of Care Document ---
Author Author [facility] Privacy Networks Address Unknown Phone Unavailable Care Team Providers Care Clinical Trials Nurse Name Role Phone [facility] Information Exchange Unavailable Unavailable Problems No Data Provided for This Section Medications Medication Details Route Status Patient Instructions Ordering Provider Order Date Source Enoxaparin Sodium (Lovenox) 40 Mg/0.4 Ml Inj, 40 Mg Subcutaneously Today At 5:00PM Active 10/24/2018 [facility] Glimepiride 2 Mg Tablet, 4 Mg Twice A Day Active 10/24/2018 [facility] Hydrochlorothiazide 25 Mg Tablet, 25 Mg Oral Twice A Day Active 10/24/2018 [facility] Valsartan (Diovan) 160 Mg Tab, 160 Mg Oral Twice A Day Active 10/24/2018 [facility] Diovan , Oral Twice A Day Active 07/15/2018 [facility] Hydrocodone Bit/Acetaminophen (Hydrocodon-Acetaminoph 7.5-325) 1 Each Tablet, as needed Active 03/31/2014 [facility] Metoprolol Succinate 50 Mg Tab.er.24h, 50 Mg Twice A Day Active 03/31/2014 [facility] Amlodipine Besylate 10 Mg Tablet Daily Active [facility] Benzonatate 100 Mg Capsule Three Times A Day as needed for Cough Active [facility] Cefdinir Twice A Day Active [facility] Clopidogrel Bisulfate (Clopidogrel) 75 Mg Tablet Daily Active [facility] Hydralazine Hcl 50 Mg Tablet Twice A Day Active [facility] Insulin Detemir (Levemir) 100 Unit/1 Ml Vial Bedtime Active [facility] Losartan Potassium 100 Mg Tablet Daily Active [facility] Metformin Hcl 500 Mg Tablet Bedtime Active [facility] Pravastatin Sodium 80 Mg Tablet Bedtime Active THERAPEUTICALLY SUBSTITUTED WITH SIMVASTATIN 40MG [facility] Allergies, Adverse Reactions, Alerts Substance Category Reaction Severity Reaction type Status Date Reported Comments Source Aspirin N/V Mild Allergy to Substance Active 07/15/2018 [facility] Immunizations No Data Provided for This Section Results Order Name Results Value Reference Range Date Interpretation Comments Source Capillary blood glucose measurement by glucometer (mass/volume) 306 70 - 120 11/29/2018 [facility] Blood leukocytes automated count (number/volume) 5.86 4.8 - 10.8 11/28/2018 [facility] Blood erythrocytes automated count (number/volume) 3.29 3.6 - 5.1 11/28/2018 [facility] Blood hemoglobin measurement (moles/volume) 10.8 12.0 - 16.0 11/28/2018 [facility] Automated blood hematocrit (volume fraction) 31.6 34.2 - 44.1 11/28/2018 [facility] Automated erythrocyte mean corpuscular volume 96.0 81 - 99 11/28/2018 [facility] Automated erythrocyte mean corpuscular hemoglobin (mass per erythrocyte) 32.8 28 - 32 11/28/2018 [facility] Automated erythrocyte mean corpuscular hemoglobin concentration measurement (mass/volume) 34.2 31 - 35 11/28/2018 [facility] RDW BldCo-Rto 13.1 11.7 - 14.4 11/28/2018 [facility] Automated blood platelet count (count/volume) 195 140 - 360 11/28/2018 [facility] Automated blood segmented neutrophil count as percentage of total leukocytes 56.1 38.7 - 80.0 11/28/2018 [facility] Automated blood lymphocyte count as percentage ot total leukocytes 32.6 18.0 - 39.1 11/28/2018 [facility] Automated blood monocyte count as percentage of total leukocytes 8.7 4.4 - 11.3 11/28/2018 [facility] Automated blood eosinophil count as percentage of total leukocytes 1.7 0.0 - 6.0 11/28/2018 [facility] Automated blood basophil count as percentage of total leukocytes 0.7 0.0 - 1.0 11/28/2018 [facility] IM GRANULOCYTES % 0.2 0.0 - 1.0 11/28/2018 [facility] Automated blood neutrophil count 3.3 2.1 - 6.9 11/28/2018 [facility] Blood lymphocytes count (number/volume) 1.9 1.0 - 3.2 11/28/2018 [facility] Blood monocytes automated count (number/volume) 0.5 0.2 - 0.8 11/28/2018 [facility] Automated blood eosinophil count 0.1 0.0 - 0.4 11/28/2018 [facility] Automated blood basophil count (count/volume) 0.0 0.0 - 0.1 11/28/2018 [facility] Absolute Immature Granulocyte (auto 0.01 0 - 0.1 11/28/2018 [facility] Prothrombin time (PT) in platelet poor plasma by coagulation assay 11.8 11.9 - 14.5 11/28/2018 [facility] INR in Platelet poor plasma by Coagulation assay 0.82 11/28/2018 [facility] Serum or plasma sodium measurement (moles/volume) 136 136 - 145 11/28/2018 [facility] Serum or plasma potassium measurement (moles/volume) 4.2 3.5 - 5.1 11/28/2018 [facility] Serum or plasma chloride measurement (moles/volume) 100 98 - 107 11/28/2018 [facility] Serum or plasma carbon dioxide, total measurement (moles/volume) 26 22 - 29 11/28/2018 [facility] Serum or plasma anion gap 14.2 8 - 16 11/28/2018 [facility] Serum or plasma urea nitrogen measurement (mass/volume) 19 7 - 26 11/28/2018 [facility] Serum or plasma creatinine measurement (mass/volume) 1.54 0.57 - 1.11 11/28/2018 [facility] Serum or plasma urea nitrogen/creatinine mass ratio 12 6 - 25 11/28/2018 [facility] Estimated glomerular filtration rate (GFR) determination 34 60 11/28/2018 [facility] Glucose measurement 342 74 - 118 11/28/2018 [facility] Serum or plasma calcium measurement (mass/volume) 9.6 8.4 - 10.2 11/28/2018 [facility] Serum or plasma total bilirubin measurement (mass/volume) 0.6 0.2 - 1.2 11/28/2018 [facility] Aspartate Amino Transf (AST/SGOT) 18 5 - 34 11/28/2018 [facility] Serum or plasma alanine aminotransferase measurement (enzymatic activity/volume) 22 0 - 55 11/28/2018 [facility] Serum or plasma protein measurement (mass/volume) 7.5 6.5 - 8.1 11/28/2018 [facility] Serum or plasma albumin measurement (mass/volume) 3.2 3.5 - 5.0 11/28/2018 [facility] Plasma globulin measurement (mass/volume) 4.3 2.3 - 3.5 11/28/2018 [facility] Serum or plasma albumin/globulin mass ratio 0.7 0.8 - 2.0 11/28/2018 [facility] Serum or plasma alkaline phosphatase measurement (enzymatic activity/volume) 68 40 - 150 11/28/2018 [facility] Hemoglobin A1c Percent 12.0 4.0 - 7.0 07/18/2018 [facility] Serum or plasma trough vancomycin level at trough (mass/volume) 19.6 5.0 - 10.0 07/17/2018 [facility] Lactic Acid Level 9.7 4.5 - 19.8 07/16/2018 [facility] Bacteria identification in wound by culture Organism: ENTEROBACTER AEROGENES 07/16/2018 [facility] Erythrocyte sedimentation rate by Westergren method 125 0 - 20 07/16/2018 [facility] Serum or plasma triglyceride measurement (mass/volume) 312 0 - 149 07/16/2018 [facility] Serum or plasma cholesterol measurement (mass/volume) 243 0 - 199 07/16/2018 [facility] Serum or plasma cholesterol in LDL measurement (mass/volume) 151 60 - 130 07/16/2018 [facility] Serum or plasma cholesterol in HDL measurement (mass/volume) 30 40 - 60 07/16/2018 [facility] Serum or plasma total cholesterol/cholesterol in HDL mass ratio 8.1 3.0 - 3.6 07/16/2018 [facility] Serum or plasma thyrotropin measurement by detection limit <=0.005 miu/l (units/volume) 2.669 0.350 - 4.940 07/16/2018 [facility] Serum or plasma C reactive protein measurement (mass/volume) 43.4 0.0 - 4.9 07/16/2018 [facility] Urine color determination YELLOW YELLOW 07/15/2018 [facility] Urine clarity HAZY CLEAR 07/15/2018 [facility] Specific gravity of Urine by Test strip 1.015 1.010 - 1.025 07/15/2018 [facility] Urine pH measurement by automated test strip 6.5 5 - 7 07/15/2018 [facility] Urine leukocyte esterase detection by dipstick TRACE NEGATIVE 07/15/2018 [facility] Urine nitrite detection POSITIVE NEGATIVE 07/15/2018 [facility] Urine protein measurement by test strip (mass/volume) 1+ NEGATIVE 07/15/2018 [facility] Urine glucose detection 3+ NEGATIVE 07/15/2018 [facility] Urine ketones detection by automated test strip NEGATIVE NEGATIVE 07/15/2018 [facility] Urine urobilinogen measurement by test strip (mass/volume) 0.2 0.2 - 1 07/15/2018 [facility] Urine total bilirubin measurement (mass/volume) NEGATIVE NEGATIVE 07/15/2018 [facility] Urine erythrocytes detection TRACE NEGATIVE 07/15/2018 [facility] Automated urine sediment leukocyte count by microscopy (number/high power field) 11-20 0 - 5 07/15/2018 [facility] Erythrocytes detection in urine sediment by light microscopy 0-5 0 - 5 07/15/2018 [facility] Bacteria detection in urine sediment by light microscopy MANY NONE 07/15/2018 [facility] Epithelial cells detection in urine sediment by light microscopy RARE NONE 07/15/2018 [facility] Activated partial thromboplastin time (aPTT) in platelet poor plasma bycoagulation assay 29.7 23.8 - 35.5 07/15/2018 [facility] Serum or plasma creatine kinase measurement (enzymatic activity/volume) 44 29 - 168 07/15/2018 [facility] Serum or plasma creatine kinase MB measurement (mass/volume) 0.60 0 - 5.0 07/15/2018 [facility] Troponin I measurement by highly sensitive enzyme immunoassay 0.169 0 - 0.300 07/15/2018 [facility] Serum or plasma lipase measurement (enzymatic activity/volume) 99 8 - 78 07/15/2018 [facility] Bacterial urine culture Urine Culture [facility] Pathology Reports No Data Provided for This Section Diagnostic Reports No Data Provided for This Section Consultation Notes No Data Provided for This Section Discharge Summaries No Data Provided for This Section History and Physicals No Data Provided for This Section Vital Signs No Data Provided for This Section Encounters Location Location Details Encounter Type Encounter Number Reason For Visit Attending Provider ADM Date DC Date Status Source Discharged Inpatient [id number] FAISAL NGUYEN MD 07/15/2018 07/19/2018 [facility] Registered [facility] Day [facility] [id number] SHLOMO HOBBS DO 10/10/2018 [facility] Registered [facility] Day [facility] [id number] SHLOMO CHRISTINEZ DO 10/25/2018 [facility] Departed Emergency Room [id number] AMY HEADLEY MD 10/25/2018 10/25/2018 [facility] Registered Clinic [id number] FAISAL NGUYEN MD 11/07/2018 [facility] Discharged Inpatient (obs) [id number] SHLOMO CHRISTINEZ DO 11/29/2018 11/29/2018 [facility] Procedures Procedure Code Date Perfomer Comments Source SEC ART THROMBECTOMY ADD-ON [id number] 10/25/2018 [facility] FEM/POPL REVAS W/ATHER [id number] 10/25/2018 [facility] FEM/POPL REVAS W/ATHER [id number] 10/10/2018 [facility] TIB/PER REVASC W/ATHER [id number] 10/10/2018 [facility] DETACHMENT AT RIGHT FOOT, PARTIAL 1ST RAY, OPEN APPROACH [id number] 07/17/2018 [facility] DETACHMENT AT RIGHT FOOT, PARTIAL 2ND RAY, OPEN APPROACH [id number] 07/17/2018 [facility] DETACHMENT AT RIGHT FOOT, PARTIAL 3RD RAY, OPEN APPROACH [id number] 07/17/2018 [facility] DETACHMENT AT RIGHT FOOT, PARTIAL 4TH RAY, OPEN APPROACH [id number] 07/17/2018 [facility] DETACHMENT AT RIGHT FOOT, PARTIAL 5TH RAY, OPEN APPROACH [id number] 07/17/2018 [facility] INSERTION OF INFUSION DEV INTO SUP VENA CAVA, PERC APPROACH [id number] 07/17/2018 [facility] MRI lower extremity w/o dye [id number] 07/16/2018 [facility] X-ray of chest, two views [id number] 07/15/2018 [facility] Assessment and Plan No Data Provided for This Section Plan of Care Plan of Care Date Source Discharge Date 11/29/18 10:03pm Disposition HOME, SELF-CARE Prescriptions See Medication Section 11/29/2018 [facility] Social History Social History Date Source Social History Problem Response Recorded Date/Time Onset Date Status Hx Psychiatric Problems No 09/24/2012 4:52pm Not Applicable Not Applicable Hx Substance Use Disorder No 11/28/2018 1:09pm Not Applicable Not Applicable Hx Alcohol Use No 11/28/2018 1:09pm Not Applicable Not Applicable Smoking Status Start Date Stop Date Never Smoker 11/29/2018 [facility] Family History No Data Provided for This Section Advance Directives Order Name Results Value Date Source Advance Directives Advance Directives Directive Response Recorded Date/Time Does the patient have an advance directive? No 07/16/18 3:00pm If yes, is advance directive on file with [facility]? No 10/09/18 1:51pm If not on file with [facility] will patient provide a copy? No 10/09/18 1:51pm Do you have a Directive to Physician? No 11/28/18 12:48pm Do you have a Medical Power of Dairy Store Manager? No 11/28/18 12:48pm Do you have an out of hospital Do Not Resuscitate Order? No 11/28/18 12:48pm Do you have any special needs we should be aware of? No 11/28/18 12:48pm Do you have a support person here with you today? No 11/28/18 12:48pm Did patient receive Notice of Privacy Practices? Yes 11/28/18 12:48pm Did patient receive patient rights and responsibilities? Yes 11/28/18 12:48pm 11/29/2018 [facility] Functional Status No Data Provided for This Section
--- OUTSIDE RECORDS SUMMARY | 2019-04-18 06:34 | XMS REPORT | Clinical Summary ---
Author Author [facility] Organization [facility] [facility] Address Unknown Phone Unavailable Care Team Providers Care Deflash And Wash Operator Name Role Phone Mike Amezcua MD [...] INFLUENZA VACCINE 04/04/2019 Results Not on fileafter 04/17/2018 Insurance Type Payer Benefit Subscriber ID Effective Phone Address Plan / Dates Group O [facility] MEDICARE AARP xxxxxxxxx [id number] MEDICARE resent COMPLETE [facility] Advance Directives Patient has advance care planning documents on file. For more information, randell hamm contact: Nilay Neumann [address] [place] [id number]
--- OUTSIDE RECORDS SUMMARY | 2019-04-18 06:34 | XMS REPORT | Summary of Care ---
Author Author [facility] Organization Unknown Address Unknown Phone Unavailable Care Team Providers Care Tobacco Stripper Hand Name Role Phone DR JON SRIVASTAVA Unavailable Unavailable FAISAL NGUYEN MD Unavailable Unavailable SHLOMO HOBBS DO Unavailable Unavailable Unavailable Unavailable Functional Status Name Dates Details Functional status health issues are not documented Status: Name Dates Details Cognitive status health issues are not documented Status: Problems Name Dates Details PVD (peripheral vascular disease) (443.9, I73.9) Status: Active Medications Name Dates Details Plavix 75 MG Oral Tablet Active Lasix 20 MG Oral Tablet * Refills: 0 Active metFORMIN HCl - 500 MG Oral Tablet * Refills: 0 Active Norvasc 10 MG Oral Tablet * Refills: 0 Active Losartan Potassium 100 MG Oral Tablet * Refills: 0 Active hydrALAZINE HCl - 50 MG Oral Tablet * Refills: 0 Active Levemir 100 UNIT/ML Subcutaneous Solution * Refills: 0 Active Allergies and Adverse Reactions Name Dates Details Aspirin TABS (Allergy) Status: Active Procedures Procedure Dates Details Procedures not documented Immunization Name Dates Details Immunizations not documented Social History Name Dates Details - Status: Name Dates Details Never smoker Vital Signs Date Test Result Details [id number] BP Systolic 149 mm[Hg] Status: BP Diastolic 77 mm[Hg] Status: Height 62 in Status: Weight 168 lb Status: Body Mass Index Calculated 30.73 kg/m2 Status: Body Surface Area Calculated 1.77 m2 Status: Results Date Description Value Details Results not documented Plan of Care Name Dates Details Planned Observations Planned Goals not documented Interventions Provided Labs/Procedures/Imaging* CVRAD - Bilateral Lower Arterial Duplex - [id number]; Done: 06 Mar 2019 * CVRAD - Lower Arterial Seg. Pressures - [id number]; Done: 06 Mar 2019 Instructions Name Dates Details Instructions not documented Encounters Appointment; LONNIE WEBB M.D. Encounter Diagnosis: Problem not documented On: 25-Feb-2019 10:45 Appointment; DR JON SRIVASTAVA Encounter Diagnosis: Problem not documented On: 04-Mar-2019 11:30 Appointment; DR JON SRIVASTAVA Encounter Diagnosis: Problem not documented On: 06-Mar-2019 11:00
[2019-04-18 10:20] VITALS: BP 121/55
--- NOTE | 2019-04-18 14:43 | Operative Report ---
DATE OF PROCEDURE: 04/18/2019 SURGEON: Monster Bradford MD PROCEDURE: Colonoscopy with polypectomy. INDICATION FOR PROCEDURE: Colorectal cancer screening, positive Cologuard test. MEDICATIONS: The patient was done under MAC, please see anesthesiologist's note. PROCEDURE IN DETAIL: With the patient in left lateral decubitus position, flexible fiberoptic Olympus colonoscope was inserted into the rectum with ease and advanced all the way to the cecum. Mucosa overlying the cecum appeared to be within normal limits. Two polyps were snared from the ascending colon and one polypectomy site was hemoclipped. The transverse grossly appeared to be within normal limits. One polyp was hot biopsied. Two polyps were snared from the descending colon. Five polyps were snared from the sigmoid colon with the most proximal polypectomy site tattooed. Large polyp approximately 2 cm in size was removed per snare electrocautery from the distal sigmoid colon and polypectomy site was hemoclipped x2. Another large polyp in the proximal rectum was removed per snare electrocautery and polypectomy site was hemoclipped x2. The scope was then retroflexed into the distal rectum and small internal hemorrhoids were noted, none of which was actively bleeding. The scope was then straightened out, it was subsequently withdrawn. The patient tolerated the procedure well. IMPRESSION: 1. Ascending colon polyps x2, removed per snare electrocautery and one polypectomy site hemoclipped. 2. Descending colon polyps x3, two removed per snare electrocautery and one hot biopsied. 3. Sigmoid colon polyps x5, removed per snare electrocautery and the most proximal polypectomy site was tattooed. 4. Approximately 2 cm polyp in distal sigmoid colon, removed per snare electrocautery and site hemoclipped x2. 5. Approximately 2 cm polyp in proximal rectum, removed per snare electrocautery and hemoclipped x2. 6. Internal hemorrhoids, none actively bleeding. PLAN: Follow up histology. Timing of followup colonoscopy pending pathology report. Monster Bradford MD [facility] /[id number] cc: Mike Amezcua MD
== END | disposition home or self-care (01) ==
LOC: OR 06:23
PROVIDERS: ATTEND Internal Medicine Gastroenterology
DX: R19.5 Other fecal abnormalities (principal); D12.2 Benign neoplasm of ascending colon; D12.4 Benign neoplasm of descending colon; D12.5 Benign neoplasm of sigmoid colon; D12.8 Benign neoplasm of rectum; K64.8 Other hemorrhoids; I10 Essential (primary) hypertension; Z88.6 Allergy status to analgesic agent; Z01.810 Encounter for preprocedural cardiovascular examination; Z01.812 Encounter for preprocedural laboratory examination; E11.9 Type 2 diabetes mellitus without complications; Z79.02 Long term (current) use of antithrombotics/antiplatelets; Z79.84 Long term (current) use of oral hypoglycemic drugs; Z79.4 Long term (current) use of insulin; Z68.30 Body mass index [BMI] 30.0-30.9, adult
CPT/HCPCS: 36415 ×2; 45381; 45384; 45385; 82948; 85025; 93005; J1610; J2250; J2704; J3010; 45378; J1817

== ENCOUNTER → 2019-07-11 | Day surgery (SDC) | payer MEDICARE ==
[2019-07-08 12:07] LABS: BASOPHILS % 0.5 % (0.0-1.0); EOSINOPHILS # (AUTO) 0.1 (0.0-0.4); EOSINOPHILS % 1.8 % (0.0-6.0); HEMATOCRIT 35.4 % (34.2-44.1); LYMPHOCYTES # (AUTO) 2.1 (1.0-3.2); LYMPHOCYTES % 33.6 % (18.0-39.1); MEAN CORPUSCULAR HEMOGLOBIN 32.7 pg (28-32); MEAN CORPUSCULAR HGB CONC 33.9 g/dL (31-35); MEAN CORPUSCULAR VOLUME 96.5 fL (81-99); MONOCYTES # (AUTO) 0.5 (0.2-0.8); NEUTROPHILS # (AUTO) 3.4 (2.1-6.9); NEUTROPHILS % 55.8 % (38.7-80.0); PLATELET COUNT 195 x10e3/uL (140-360); RED BLOOD COUNT 3.67 x10e6/uL (3.6-5.1); RED CELL DISTRIBUTION WIDTH 12.4 % (11.7-14.4)
[2019-07-08 12:16] LABS: INR 0.86; PROTHROMBIN TIME 12.2 seconds (11.9-14.5)
[2019-07-08 12:22] LABS: ALBUMIN 3.7 g/dL (3.5-5.0); ANION GAP 18.3 mmol/L (8-16); CALCIUM 10.5 mg/dL (8.4-10.2); CREATININE, SERUM 1.4 mg/dL (0.57-1.11); POTASSIUM 4.3 mmol/L (3.5-5.1)
[2019-07-11] VITALS (8 sets, daily range): BP systolic 147–189; BP diastolic 65–101
[~2019-07-11] VITALS: Ht 157.5 cm; Wt 73.9 kg
[~2019-07-11] MED LIST changes: -GLUCAGON FOR INJ 1 MG VIAL ONE; +HEPARIN SOD (PORCINE) 1000 UNIT/ML 30ML ONE; +HEPARIN SOD/SOD CHLORIDE 2,000 ML ONE; -HYOSCYAMINE 0.125 MG TAB ONE; -INSULIN REGULAR, HUMAN 100 UNIT/1 ML 3ML VIAL ONE; +IOPAMIDOL 370 MG/ML 200 ML INFUS..BTL INJ ONE; +LIDOCAINE HCL 2% LOCAL 20 ML VIAL ONE; +NITROGLYCERIN/D5W 200 MCG/ML 250 ML ONE; +PRENATAL VITAM1 EACH PO; -PROPOFOL IV EMULSION 10 MG/ML 50 ML VIAL ONE; +VERAPAMIL HCL 2.5 MG/ML 2 ML VIAL ONE; +VITAMIN C500 M1 PO
--- NOTE | 2019-07-11 17:57 | Operative Report ---
DATE OF PROCEDURE: SURGEON: Bryan Monterroso DO PROCEDURES PERFORMED: 1. Conscious sedation, 26 minutes. 2. Selective coronary angiography x2. 3. Left heart catheterization. PREPROCEDURE DIAGNOSIS: Abnormal stress test showing lateral perfusion defect. POSTPROCEDURE DIAGNOSIS: Multivessel coronary artery disease. ESTIMATED BLOOD LOSS: Less than 20 mL. SPECIMENS REMOVED: None. PROCEDURE IN DETAIL: After informed consent was obtained, the patient was brought to the cardiac catheterization laboratory in a fasting and nonsedated state. Bilateral groins and right wrist were prepped and draped in usual sterile fashion. A 2% lidocaine was instilled over the right anterior wrist for local anesthesia. The patient received fentanyl and midazolam and was monitored by myself and nursing staff. Subsequent angiography and left heart catheterization were performed using a Wilfrid catheter. Diagnostic imaging revealed multivessel coronary artery disease. All catheters were subsequently removed over the wire. Hemostasis was achieved via TR band. The patient tolerated the procedure well with no immediate complications and was transferred back to room in stable condition. PROCEDURAL FINDINGS: 1. Left main coronary artery is short and patent without significant disease. 2. Left anterior descending coronary artery has a mid 70% stenosis at the takeoff of the second diagonal, which itself has an ostial 70% stenosis. 3. The ramus intermedius coronary artery is a medium caliber vessel and has an ostial 70% stenosis. 4. The left circumflex coronary provides 2 obtuse marginal vessels and a left posterior descending coronary artery. The midportion of the circumflex just after the takeoff of the first obtuse marginal is 100% occluded. There are collaterals from the left and right coronary systems filling the 2nd OM and the left PDA. 5. The right coronary artery is a small nondominant with diffuse disease. 6. Left ventricular end-diastolic pressure is 13 mmHg. No aortic valve gradient present upon pullback. IMPRESSION: Multivessel coronary artery disease. RECOMMENDATIONS: Referred for bypass surgery. Bryan Monterroso DO [facility]/MODL /[id number]
== END | disposition home or self-care (01) ==
LOC: CATH LAB 09:05
PROVIDERS: ATTEND Internal Medicine Cardiovascular Disease
DX: I25.10 Atherosclerotic heart disease of native coronary artery without angina pectoris (principal); R94.39 Abnormal result of other cardiovascular function study; I70.213 Atherosclerosis of native arteries of extremities with intermittent claudication, bilateral legs; E78.2 Mixed hyperlipidemia; I10 Essential (primary) hypertension; R60.9 Edema, unspecified; Z88.6 Allergy status to analgesic agent; Z01.812 Encounter for preprocedural laboratory examination; Z79.4 Long term (current) use of insulin; Z79.84 Long term (current) use of oral hypoglycemic drugs; Z82.49 Family history of ischemic heart disease and other diseases of the circulatory system; Z82.3 Family history of stroke
CPT/HCPCS: 36415; 80053; 85025; 85610; 93458; C1887; J1644; J2001; J2250; J3010; Q9967; 99152; 99153

== ENCOUNTER → 2020-03-09 | Outpatient (CLI) | payer MEDICARE ==
[~2020-03-09] MED LIST changes: -FENTANYL CITRATE/PF 100MCG/2 ML INJ ONE; -HEPARIN SOD (PORCINE) 1000 UNIT/ML 30ML ONE; -HEPARIN SOD/SOD CHLORIDE 2,000 ML ONE; -IOPAMIDOL 370 MG/ML 200 ML INFUS..BTL INJ ONE; -LIDOCAINE HCL 2% LOCAL 20 ML VIAL ONE; +METOPROLOL SUCC25 MG PO; -MIDAZOLAM HCL 2 MG/2 ML VIAL ONE; -NITROGLYCERIN/D5W 200 MCG/ML 250 ML ONE; -VERAPAMIL HCL 2.5 MG/ML 2 ML VIAL ONE
--- NOTE | 2020-03-10 09:06 | Diagnostic Imaging Report ---
EXAM: BONE MINERAL DENSITY HISTORY: Screening COMPARISON: 11/07/2018 DISCUSSION: Evaluation of the left hip and lumbar spine was performed utilizing DEXA Hologic bone densitometer. The study is technically adequate. The patient's fracture risk is compared to an age-matched control. The patient denies prior surgery/fracture of the spine, hips or forearm. Left hip femoral neck bone mineral density: 0.702 g/cm2, T-score is -1.3, Z-score is 0.2. Left hip total bone mineral density: 0.693 g/cm2, T-score is -2, Z-score is -0.8. Lumbar spine total bone mineral density: 0.990 gm/cm2, T-score is -0.5, Z-score is 1.3. Impression: Bone mineralization by WHO Classification is osteopenia, the fracture risk is increased. The bone marrow density has improved by 6.8% when compared to the previous study. Signed by: Ozzy Duvall MD on 03/10/2020 9:02 AM
== END ==
LOC: MAMMO 10:16
PROVIDERS: ATTEND Internal Medicine
DX: Z12.31 Encounter for screening mammogram for malignant neoplasm of breast (principal); M81.0 Age-related osteoporosis without current pathological fracture
CPT/HCPCS: 77067; 77080

== ENCOUNTER → 2020-05-28 | Day surgery (SDC) | payer MEDICARE, OTHER ==
[2020-05-25 11:50] LABS: BASOPHILS % 0.6 % (0.0-1.0); EOSINOPHILS # (AUTO) 0.1 (0.0-0.4); EOSINOPHILS % 1.6 % (0.0-6.0); LYMPHOCYTES # (AUTO) 2.1 (1.0-3.2); LYMPHOCYTES % 30.5 % (18.0-39.1); MEAN CORPUSCULAR HEMOGLOBIN 33.7 pg (28-32); MEAN CORPUSCULAR HGB CONC 35.3 g/dL (31-35); MEAN CORPUSCULAR VOLUME 95.5 fL (81-99); MONOCYTES # (AUTO) 0.5 (0.2-0.8); MONOCYTES % 7.8 % (4.4-11.3); NEUTROPHILS % 59.2 % (38.7-80.0); PLATELET COUNT 174 x10e3/uL (140-360); RED BLOOD COUNT 3.56 x10e6/uL (3.6-5.1); RED CELL DISTRIBUTION WIDTH 12.1 % (11.7-14.4)
[2020-05-25 12:12] LABS: ANION GAP 17.5 mmol/L (8-16); CALCIUM 9.3 mg/dL (8.4-10.2); CREATININE, SERUM 1.41 mg/dL (0.57-1.11); POTASSIUM 4.5 mmol/L (3.5-5.1)
--- NOTE | 2020-05-25 12:18 | Diagnostic Imaging Report ---
EXAMINATION: CHEST 2 VIEWS INDICATION: Preop for foot surgery ^[id number] ^1200 ^PRE-OP COMPARISON: 07/15/2018 FINDINGS: PA and lateral views TUBES and LINES: Sternal wires. LUNGS: Lungs are well inflated. Calcified granuloma or bone island projecting over the right lateral lung base. There is no evidence of pneumonia or pulmonary edema. PLEURA: No pleural effusion or pneumothorax. HEART AND MEDIASTINUM: The cardiomediastinal silhouette is unremarkable. BONES AND SOFT TISSUES: No acute osseous lesion. Soft tissues are unremarkable. UPPER ABDOMEN: No free air under the diaphragm. IMPRESSION: No acute thoracic abnormality. Signed by: Dr. Niko Coats M.D. on 05/25/2020 12:14 PM
[~2020-05-28] MED LIST changes: +BUPIVACAINE HCL 0.5% INJ 30 ML VIAL INJ ONE; +CEFAZOLIN SOD 1 GM/NS 50ML 50 ML IV ONE; +DEXAMETHASONE SOD PHOS INJ 4 MG/ML VIAL ONE; +FENTANYL CITRATE/PF 100MCG/2 ML INJ ONE; +GLYCOPYRROLATE INJ 0.2 MG/ML VIAL ONE; +KETOROLAC TROMETHAMINE 30 MG/ML VIAL ONE; +LIDOCAINE HCL 2% LOCAL INJ 5 ML SDV VIAL INJ ONE; +MIDAZOLAM HCL 2 MG/2 ML VIAL ONE; +ONDANSETRON HCL INJ 2MG/ML 2ML 2 MG/ML VIAL ONE; +PHENYLEPHRINE HCL 1% 10 MG/ML VIAL ONE; +PROPOFOL IV EMULSION 10 MG/ML 20 ML VIAL ONE; +REPATHA SU140 MG/1 M PO; +SEVOFLURANE INHAL SOLN 250 ML PEN BTL ONE
[2020-05-28 09:00] VITALS: BP 133/63
--- NOTE | 2020-05-28 13:34 | Operative Report ---
DATE OF PROCEDURE: 05/28/2020 SURGEON: Jeanne Abbott DPM ([place]) PREOPERATIVE DIAGNOSIS: Osteomyelitis in the head of the 1st metatarsal and the base of the proximal phalanx on the left foot. POSTOPERATIVE DIAGNOSIS: Osteomyelitis in the head of the 1st metatarsal and the base of the proximal phalanx on the left foot. OPERATIVE PROCEDURE: Partial amputation of 1st ray of the left foot. The patient was placed on the OR table in the supine position. The left lower extremity was prepped and draped in the usual manner. A general anesthetic was administered and hemostasis accomplished with an Esmarch bandage. A racket-type incision was made starting at the midshaft of the 1st metatarsal on the dorsal medial aspect extending to the base of the 1st digit. At this time, the incision was carried over and around the entire aspect of the toe, this allowed for the skin and soft tissue to be dissected away from the 1st metatarsophalangeal joint. The joint was disarticulated and the toe removed in total. The soft tissue was then dissected away from the metatarsal head in the metatarsal shaft. Both sesamoids were removed. At this time using a power saw the distal one-third of the 1st metatarsal was removed. Remaining shaft was smoothed with a rongeur and a hand rasp. At this time, the skin was remodeled for proper closure which also included removing the ulcerated tissue on the plantar aspect of the metatarsal head. Once this was done, the wound was flushed with sterile saline solution. The skin was closed with 3-0 nylon. Following the procedure sterile compression-type dressing was applied. At this time, the Esmarch bandage that was used for tourniquet was removed. Reflex hyperemia was observed to all digits. The patient tolerated the procedure and anesthesia well and left the OR to recovery in good condition with vital signs stable. Jeanne Abbott DPM ([place]) SH/MODL /[id number]
== END | disposition home or self-care (01) ==
LOC: OR 05:40
PROVIDERS: ATTEND Podiatrist Foot & Ankle Surgery
DX: M86.672 Other chronic osteomyelitis, left ankle and foot (principal); M19.072 Primary osteoarthritis, left ankle and foot; I25.810 Atherosclerosis of coronary artery bypass graft(s) without angina pectoris; I10 Essential (primary) hypertension; E78.5 Hyperlipidemia, unspecified; E11.9 Type 2 diabetes mellitus without complications; Z01.810 Encounter for preprocedural cardiovascular examination; Z01.812 Encounter for preprocedural laboratory examination; Z01.818 Encounter for other preprocedural examination; Z11.59 Encounter for screening for other viral diseases; Z88.6 Allergy status to analgesic agent; Z88.8 Allergy status to other drugs, medicaments and biological substances; Z79.02 Long term (current) use of antithrombotics/antiplatelets; Z79.4 Long term (current) use of insulin; Z95.1 Presence of aortocoronary bypass graft
CPT/HCPCS: 28810; 36415 ×2; 71046; 80048; 82948; 85025; 88305; 88311; 93005; J0690; J1100; J1885; J2001; J2250; J2370; J2405; J2704; J3010; U0002; 88304; 88307

== ENCOUNTER → 2021-05-25 | Outpatient (CLI) | payer MEDICARE ==
[~2021-05-25] MED LIST changes: -BUPIVACAINE HCL 0.5% INJ 30 ML VIAL INJ ONE; -CEFAZOLIN SOD 1 GM/NS 50ML 50 ML IV ONE; -DEXAMETHASONE SOD PHOS INJ 4 MG/ML VIAL ONE; -FENTANYL CITRATE/PF 100MCG/2 ML INJ ONE; -GLYCOPYRROLATE INJ 0.2 MG/ML VIAL ONE; -KETOROLAC TROMETHAMINE 30 MG/ML VIAL ONE; -LIDOCAINE HCL 2% LOCAL INJ 5 ML SDV VIAL INJ ONE; -MIDAZOLAM HCL 2 MG/2 ML VIAL ONE; -ONDANSETRON HCL INJ 2MG/ML 2ML 2 MG/ML VIAL ONE; -PHENYLEPHRINE HCL 1% 10 MG/ML VIAL ONE; -PROPOFOL IV EMULSION 10 MG/ML 20 ML VIAL ONE; -SEVOFLURANE INHAL SOLN 250 ML PEN BTL ONE
== END ==
LOC: MAMMO 10:30
PROVIDERS: ATTEND Internal Medicine
DX: Z12.31 Encounter for screening mammogram for malignant neoplasm of breast (principal); M85.80 Other specified disorders of bone density and structure, unspecified site; Z78.0 Asymptomatic menopausal state
CPT/HCPCS: 77067; 77080

== ENCOUNTER → 2021-07-22 | Outpatient (CLI) | payer MEDICARE, OTHER | LOC: US 08:31 | PROVIDERS: ATTEND Internal Medicine Nephrology | DX: N18.31 Chronic kidney disease, stage 3a (principal) | CPT/HCPCS: 76770; 76857 ==

== ENCOUNTER → 2021-08-19 | Day surgery (SDC) | payer MEDICARE, OTHER ==
[2021-08-16 13:00] LABS: BASOPHILS % 0.5 % (0.0-1.0); EOSINOPHILS # (AUTO) 0.1 (0.0-0.4); EOSINOPHILS % 1.6 % (0.0-6.0); HEMATOCRIT 37.6 % (34.2-44.1); HEMOGLOBIN 12.9 g/dL (12.0-16.0); LYMPHOCYTES # (AUTO) 2.1 (1.0-3.2); LYMPHOCYTES % 34.5 % (18.0-39.1); MEAN CORPUSCULAR HEMOGLOBIN 33.8 pg (28-32); MEAN CORPUSCULAR HGB CONC 34.3 g/dL (31-35); MEAN CORPUSCULAR VOLUME 98.4 fL (81-99); MONOCYTES # (AUTO) 0.6 (0.2-0.8); MONOCYTES % 9.1 % (4.4-11.3); NEUTROPHILS # (AUTO) 3.3 (2.1-6.9); PLATELET COUNT 204 x10e3/uL (140-360); RED BLOOD COUNT 3.82 x10e6/uL (3.6-5.1); RED CELL DISTRIBUTION WIDTH 11.9 % (11.7-14.4)
[2021-08-16 13:02] LABS: INR 0.92; PROTHROMBIN TIME 13.1 seconds (11.9-14.5)
[2021-08-16 13:09] LABS: ALBUMIN 4.1 g/dL (3.5-5.0); ALBUMIN/GLOBULIN RATIO 1.2 (0.8-2.0); ANION GAP 16.2 mmol/L (8-16); CALCIUM 9.8 mg/dL (8.4-10.2); CHOL/HDL RATIO 7.1 (3.0-3.6); CREATININE, SERUM 1.5 mg/dL (0.57-1.11); POTASSIUM 4.2 mmol/L (3.5-5.1)
[2021-08-19] VITALS (15 sets, daily range): BP systolic 109–181; BP diastolic 55–77
[~2021-08-19] VITALS: Ht 157.5 cm; Wt 72.6 kg
[~2021-08-19] MED LIST changes: +EPIDIOLEX100 MG/1 M PO; +FENTANYL CITRATE/PF 100MCG/2 ML INJ ONE; +FIBER625 MG PO; +HEPARIN SOD (PORCINE) 1000 UNIT/ML 30ML ONE; +HEPARIN SOD/SOD CHLORIDE 2,000 ML ONE; +IOPAMIDOL 370 MG/ML 200 ML INFUS..BTL INJ ONE; +LIDOCAINE HCL 2% LOCAL 20 ML VIAL ONE; +MIDAZOLAM HCL 2 MG/2 ML VIAL ONE; +NITROGLYCERIN/D5W 200 MCG/ML 250 ML ONE; +NORVASC10 MG PO; +SODIUM CHLORIDE 0.9% 1000ML 1,000 ML ONE
== END | disposition home or self-care (01) ==
LOC: CATH LAB 06:44
PROVIDERS: ATTEND Internal Medicine Cardiovascular Disease
DX: I25.810 Atherosclerosis of coronary artery bypass graft(s) without angina pectoris (principal); I70.202 Unspecified atherosclerosis of native arteries of extremities, left leg; I70.92 Chronic total occlusion of artery of the extremities; Z95.1 Presence of aortocoronary bypass graft; Z01.812 Encounter for preprocedural laboratory examination; Z20.822 Contact with and (suspected) exposure to COVID-19; Z79.02 Long term (current) use of antithrombotics/antiplatelets; Z79.4 Long term (current) use of insulin
CPT/HCPCS: 36415; 75710; 76937; 80053; 80061; 85025; 85610; 93459; C1769; C1887; C1894; J1644; J2001; J2250; J3010; J7030; Q9967; U0002; 99152; 99153

== ENCOUNTER → 2022-10-17 | Outpatient (CLI) | payer MEDICARE ==
[~2022-10-17] MED LIST changes: -FENTANYL CITRATE/PF 100MCG/2 ML INJ ONE; -HEPARIN SOD (PORCINE) 1000 UNIT/ML 30ML ONE; -HEPARIN SOD/SOD CHLORIDE 2,000 ML ONE; -IOPAMIDOL 370 MG/ML 200 ML INFUS..BTL INJ ONE; -LIDOCAINE HCL 2% LOCAL 20 ML VIAL ONE; -MIDAZOLAM HCL 2 MG/2 ML VIAL ONE; -NITROGLYCERIN/D5W 200 MCG/ML 250 ML ONE; -SODIUM CHLORIDE 0.9% 1000ML 1,000 ML ONE
== END ==
LOC: MAMMO 09:47
PROVIDERS: ATTEND Internal Medicine
DX: Z12.31 Encounter for screening mammogram for malignant neoplasm of breast (principal); M85.88 Other specified disorders of bone density and structure, other site
CPT/HCPCS: 77067; 77080

== ENCOUNTER → 2023-07-25 | Day surgery (SDC) | payer MEDICARE ==
[2023-07-19 12:13] LABS: BASOPHILS % 0.5 % (0.0-1.0); EOSINOPHILS # (AUTO) 0.1 (0.0-0.4); EOSINOPHILS % 1.3 % (0.0-6.0); HEMATOCRIT 37.4 % (34.2-44.1); HEMOGLOBIN 12.8 g/dL (12.0-16.0); LYMPHOCYTES % 33.2 % (18.0-39.1); MEAN CORPUSCULAR HEMOGLOBIN 33.2 pg (28-32); MEAN CORPUSCULAR HGB CONC 34.2 g/dL (31-35); MEAN CORPUSCULAR VOLUME 96.9 fL (81-99); MONOCYTES # (AUTO) 0.5 (0.2-0.8); MONOCYTES % 8.2 % (4.4-11.3); NEUTROPHILS # (AUTO) 3.4 (2.1-6.9); NEUTROPHILS % 56.5 % (38.7-80.0); PLATELET COUNT 158 x10e3/uL (140-360); RED BLOOD COUNT 3.86 x10e6/uL (3.6-5.1); RED CELL DISTRIBUTION WIDTH 11.8 % (11.7-14.4); WHITE BLOOD COUNT 5.97 x10e3/uL (4.8-10.8)
[~2023-07-25] MED LIST changes: +DIALYVITE TABL1 EACH PO; +EPHEDRINE SULFATE INJ 50 MG/ML VIAL ONE; +FARXIGA5 MG PO; +HYOSCYAMINE SULFATE 0.5 MG/ML INJ ONE; +LACTATED RINGER'S 1,000 ML ONE; +METOPROLOL TART25 MG PO; +PROPOFOL IV EMULSION 10 MG/ML 20 ML VIAL ONE; +PROPOFOL IV EMULSION 50 ML IV ONE; +REPATHA SY140 MG/1 M IM
[2023-07-25 13:10] VITALS: BP 117/62; PULSE 82; RESP 17; O2SAT 98
== END | disposition home or self-care (01) ==
LOC: OR 10:02
PROVIDERS: ATTEND Internal Medicine Gastroenterology
DX: Z09 Encounter for follow-up examination after completed treatment for conditions other than malignant neoplasm (principal); D12.2 Benign neoplasm of ascending colon; D12.3 Benign neoplasm of transverse colon; D12.5 Benign neoplasm of sigmoid colon; D12.8 Benign neoplasm of rectum; K62.89 Other specified diseases of anus and rectum; Z71.3 Dietary counseling and surveillance; D64.9 Anemia, unspecified; I25.10 Atherosclerotic heart disease of native coronary artery without angina pectoris; I25.2 Old myocardial infarction; E11.22 Type 2 diabetes mellitus with diabetic chronic kidney disease; I12.9 Hypertensive chronic kidney disease with stage 1 through stage 4 chronic kidney disease, or unspecified chronic kidney disease; N18.30 Chronic kidney disease, stage 3 unspecified; Z88.6 Allergy status to analgesic agent; Z88.8 Allergy status to other drugs, medicaments and biological substances; Z01.810 Encounter for preprocedural cardiovascular examination; Z01.812 Encounter for preprocedural laboratory examination; Z79.02 Long term (current) use of antithrombotics/antiplatelets; Z79.4 Long term (current) use of insulin; Z79.84 Long term (current) use of oral hypoglycemic drugs; Z95.5 Presence of coronary angioplasty implant and graft
CPT/HCPCS: 36415 ×2; 45385; 82948; 85025; 93005; J1980; J2704 ×2; J7121; 45378